=== PATIENT | male | born 1970 | race African-American/Black ===

== ENCOUNTER 2023-06-16 23:39 | Emergency (ER) | payer OTHER, SELFPAY ==
[2023-06-16 23:36] VITALS: BP 114/69; PULSE 69; RESP 14; TEMP 36.8; O2SAT 97; BMI 28.5
[2023-06-16 23:37] VITALS: PULSE 73; RESP 21; O2SAT 98
[2023-06-16 23:38] VITALS: BP 114/66; PULSE 70; RESP 30; O2SAT 96
[2023-06-16 23:40] VITALS: PULSE 73; RESP 22; O2SAT 96
[2023-06-16 23:44] VITALS: O2SAT 98
--- NOTE | 2023-06-16 23:45 | PC.NURSE ---
pt brought in by ems. pt states that him and his just recently moved from [place] to [place]. pt states that he sees a psychiatrist out of [facility] and has his medications filled at the [facility]. patient states that he has a history of PTSD and bipolar disorder and used to take the same meds he was just prescribed but stopped taking them because he stopped going to see his psychiatrist. pt was prescribed and took 2 trazadone, 1 risperidol, 1 prazosin, and 1 divalproex around 10:30/11pm. 30 minutes after taking the medications pt began to feel dizzy/lightheaded, and chest pain. pt called 911 when ems arrived pt bp was 60s/30s. iv started by ems staff and 400mls of fluids by time of arrival to ED. on arrival to ED patient states he is feeling better and chest pain is pretty much gone. bp on arrival is 114/86. at bedside.
--- NOTE | 2023-06-16 23:46 | ED_ITS ---
HPI - Chest Pain General Chief Complaint: Chest Pain Stated Complaint: CHEST PAIN Time Seen by Provider: 06/16/23 23:42 History of Present Illness HPI narrative: fifty 30 male presents for chest pain and the feeling he is going to pass out. At 10 PM he took four new medications, all for the 1st time. These include risperidone, trazodone, prazosin, and divalproex. He took these at 10 PM and about at about 10:45 PM he developed symptoms. This included sweatiness and lightheadedness and dizziness and he felt like he was going to pass out and his chest was hurting. When paramedics arrived his blood pressure was in the 60s systolic. He feels much better now and his chest doesn't hurt. Related Data Home Medications Medication Instructions Recorded Confirmed divalproex 500 mg tablet,extended 500 mg PO DAILY 06/16/23 06/16/23 release 24 hr (Depakote ER) prazosin 1 mg capsule 1 mg PO DAILY 06/16/23 06/16/23 risperidone 1 mg tablet (Risperdal) 1 mg PO DAILY 06/16/23 06/16/23 trazodone 50 mg tablet 50 mg PO DAILY PRN sleep 06/16/23 06/16/23 Allergies Allergy/AdvReac Type Severity Reaction Status Date / Time No Known Drug Allergies Allergy Verified 06/16/23 23:39 Review of Systems ROS Narrative A ten point review of systems is negative except as noted above. Exam Narrative Exam Narrative: Nurses note and vital signs reviewed and patient is not hypoxic. General: The patient appears well and in no apparent distress. Patient is resting comfortably on cart. Skin: Warm, dry, no pallor noted. There is no rash noted. Head: Normocephalic, atraumatic Eye: Normal conjunctiva, no drainage Ears, Nose, Mouth, and Throat: oral mucosa is moist. Nares patent. Cardiovascular: Regular Rate and Rhythm Respiratory: Patient is in no distress, no accessory muscle use, lungs are clear to auscultation, no wheezing, rales or rhonchi Back: non-tender GI: soft and nontender Musculoskeletal: The patient has no evidence of calf tenderness, no pitting edema, symmetrical pulses noted bilaterally Neurological: A&O, normal speech Psychiatric: Cooperative Constitutional Vital Signs, click to edit/add: Last Vital Signs Temp 98.2 F 06/16/23 23:36 Pulse 79 06/17/23 01:47 Resp 29 H 06/17/23 01:47 BP 112/71 06/17/23 01:47 Pulse Ox 97 06/17/23 01:40 O2 Del Method Room Air 06/16/23 23:44 Course Vital Signs Vital signs: Vital Signs Temperature 98.2 F 06/16/23 23:36 Pulse Rate 69 06/16/23 23:36 Respiratory Rate 14 06/16/23 23:36 Blood Pressure 114/69 06/16/23 23:36 Pulse Oximetry 97 06/16/23 23:36 Temperature 98.2 F 06/16/23 23:36 Pulse Rate 79 06/17/23 01:47 Respiratory Rate 29 H 06/17/23 01:47 Blood Pressure 112/71 06/17/23 01:47 Pulse Oximetry 97 06/17/23 01:40 Oxygen Delivery Method Room Air 06/16/23 23:44 MDM - Chest Pain MDM Narrative Medical decision making narrative: two sets of troponin are negative. His blood pressure is normalized. He is ambulatory without difficulty. He was discontinued these new medications [facility]. He has only taken one dose of each of these. Treatment diagnosis and follow-up were discussed with the patient and his . he is asymptomatic upon discharge. Differential Diagnosis Differential diagnosis: Likely pneumothorax, unstable angina pectoris, atypical chest pain, st elevation myocardial infarction, costochondritis and other (medication side effect) Lab Data Attestation: I reviewed the patient's lab results. Labs: Lab Results 06/16/23 06/17/23 Range/Units 23:35 01:06 WBC 12.2 H (4.0-11.0) 10^3/uL RBC 4.38 L (4.70-6.10) 10^6/uL Hgb 13.0 L (14.0-18.0) g/dL Hct 39.5 L (42.0-54.0) % MCV 90.2 (80.0-94.0) fL MCH 29.7 (25.9-34.0) pg MCHC 32.9 (29.9-35.2) g/dL RDW 13.6 (11.0-15.0) % Plt Count 216 (150-450) 10^3/uL MPV 8.8 L (9.5-13.5) fL Neut % (Auto) 63.2 (43.0-75.0) % Lymph % (Auto) 26.5 (20.5-60.0) % Menard % (Auto) 6.8 (1.7-12.0) % Eos % (Auto) 2.9 (0.9-7.0) % Baso % (Auto) 0.2 (0.2-2.0) % Neut # (Auto) 7.7 H (1.4-6.5) 10^3/uL Lymph # (Auto) 3.2 (1.2-3.8) 10^3/uL Menard # (Auto) 0.8 (0.3-0.8) 10^3/uL Eos # (Auto) 0.4 (0.0-0.7) 10^3/uL Baso # (Auto) 0.0 (0.0-0.1) 10^3/uL Abs Immat Gran (auto) 0.05 H (0.00-0.03) 10^3/uL Imm/Tot Granulo (auto) 0.4 (0.0-0.5) % Sodium 143 (136-145) mmol/L Potassium 3.1 L (3.5-5.1) mmol/L Chloride 108 H (98-107) mmol/L Carbon Dioxide 25.8 (21.0-32.0) mmol/L Anion Gap 12.3 BUN 13.0 (7.0-18.0) mg/dL Creatinine 1.07 (0.70-1.30) mg/dL Est GFR ( Amer) >60 (>=60) Est GFR (Non-Af Amer) >60 (>=60) BUN/Creatinine Ratio 12.1 Glucose 121 H (74-106) mg/dL Calcium 8.3 L (8.5-10.1) mg/dL Troponin I High Sens 10.3 10.8 (4.0-76.1) pg/mL Imaging Data Chest x-ray: Radiologist's impression: Procedure: XR chest 1V EXAM: XR chest 1V HISTORY: CP COMPARISON: None available TECHNIQUE: Single frontal view chest x-ray FINDINGS: Overlapping of the right scapula, right ribs, and soft tissues degrade evaluation of the right peripheral lower lung and right costophrenic angle. No lung consolidation, large pleural effusions, pneumothorax, or acute bony abnormality of the visualized portions of the chest. Cardiac size is unremarkable. IMPRESSION: No radiographic evidence for acute abnormality of the visualized portions of the chest. The right peripheral lower lung and costophrenic angle are obscured by overlapping structures as described above. Electronically authenticated by: DANIEL DIXON Date: 06/17/2023 00:07 ECG Data Attestation: I personally reviewed and interpreted this ECG as follows: (EKG on my interpretation shows normal sinus rhythm and a rate of 66.) Heart Score History: Slightly/Non-Suspicious ECG: Normal Age: >45-<65 years Risk Factors: 1 or 2 Risk Factors Troponin: <Normal Limit Total Heart Score Recommendations & Risks:: 2 Discharge Plan Discharge Chief Complaint: Chest Pain Clinical Impression: Chest pain, Hypotension Patient Disposition: Home, Self-Care Time of Disposition Decision: 01:49 Condition: Good Mode of Transportation: Private Vehicle Prescriptions / Home Meds: No Action prazosin 1 mg capsule 1 mg PO DAILY divalproex [Depakote ER] 500 mg tablet extended release 24 hr 500 mg PO DAILY trazodone 50 mg tablet 50 mg PO DAILY PRN (Reason: sleep) Patient Comments: 1-2 tablets as needed at bedtime for sleep Rx Instructions: 1-2 tablets as needed at bedtime for sleep risperidone [Risperdal] 1 mg tablet 1 mg PO DAILY Instructions: Chest Pain (ED), Hypotension (ED) Additional Instructions: discontinue the 4 medications [facility] Stand Alone Forms: Portal Instructions Referrals: Physician,Non-Staff, MD [Primary Care Provider] - 1 week
--- NOTE | 2023-06-16 23:46 | XR_ITS ---
The [address] [address] Patient Name: BRENDEN GARDNER MRN: [id number] date: 1970 Sex: M Assigned Patient Location: ER Current Patient Location: ER Accession/Order Number: [id number] Exam Date: 06/16/2023 23:50 Report Date: 06/17/2023 00:07 At the request of: YVONNE SILVA Procedure: XR chest 1V EXAM: XR chest 1V HISTORY: CP COMPARISON: None available TECHNIQUE: Single frontal view chest x-ray FINDINGS: Overlapping of the right scapula, right ribs, and soft tissues degrade evaluation of the right peripheral lower lung and right costophrenic angle. No lung consolidation, large pleural effusions, pneumothorax, or acute bony abnormality of the visualized portions of the chest. Cardiac size is unremarkable. XR/XR chest 1V IMPRESSION: No radiographic evidence for acute abnormality of the visualized portions of the chest. The right peripheral lower lung and costophrenic angle are obscured by overlapping structures as described above. Electronically authenticated by: DANIEL DIXON Date: 06/17/2023 00:07
--- NOTE | 2023-06-16 23:46 | ECG_ITS ---
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
[2023-06-16 23:50] VITALS: PULSE 75; RESP 31; O2SAT 98
[2023-06-16 23:51] LABS: Basophils Percent Auto 0.2 % (0.2-2.0); Eosinophils Absolute Auto 0.4 10^3/uL (0.0-0.7); Eosinophils Percent Auto 2.9 % (0.9-7.0); Hematocrit 39.5 % (42.0-54.0); Immature Granulocytes Abs Auto 0.05 10^3/uL (0.00-0.03); Immature Granulocytes Pct Auto 0.4 % (0.0-0.5); Lymphocytes Absolute Auto 3.2 10^3/uL (1.2-3.8); Lymphocytes Percent Auto 26.5 % (20.5-60.0); Mean Corpuscular HGB Conc 32.9 g/dL (29.9-35.2); Mean Corpuscular Hemoglobin 29.7 pg (25.9-34.0); Mean Corpuscular Volume 90.2 fL (80.0-94.0); Mean Platelet Volume 8.8 fL (9.5-13.5); Monocytes Absolute Auto 0.8 10^3/uL (0.3-0.8); Monocytes Percent Auto 6.8 % (1.7-12.0); Neutrophils Absolute Auto 7.7 10^3/uL (1.4-6.5); Neutrophils Percent Auto 63.2 % (43.0-75.0); Platelet Count 216 10^3/uL (150-450); Red Blood Count 4.38 10^6/uL (4.70-6.10); Red Cell Distribution Width 13.6 % (11.0-15.0); White Blood Count 12.2 10^3/uL (4.0-11.0)
[2023-06-17] VITALS (16 sets, daily range): BP systolic 80–113; BP diastolic 38–74; PULSE 76–83; RESP 22–36; O2SAT 95–100
[2023-06-17 00:07] LABS: Anion Gap 12.3; BUN Creatinine Ratio 12.1; Calcium 8.3 mg/dL (8.5-10.1); Carbon Dioxide 25.8 mmol/L (21.0-32.0); Chloride 108 mmol/L (98-107); Estimated GFR (African America >60 (>=60); Estimated GFR (Non-African Ame >60 (>=60); Glucose 121 mg/dL (74-106); Potassium 3.1 mmol/L (3.5-5.1); Sodium 143 mmol/L (136-145); Troponin I High Sensitivity 10.3 pg/mL (4.0-76.1)
[2023-06-17] MEDS: 0.9 % SODIUM CHLORIDE 1,000 ML 1000 ML IV (00:10)
[2023-06-17 01:29] LABS: Troponin I High Sensitivity 10.8 pg/mL (4.0-76.1)
== END 2023-06-17 02:10 | disposition home or self-care (01) ==
PROVIDERS: Emergency Provider Emergency Medicine
DX: R07.9 Chest pain, unspecified (principal); I95.9 Hypotension, unspecified; Z79.899 Other long term (current) drug therapy
CPT/HCPCS: 36415; 71045; 80048; 84484; 85025; 93005; 96360; 99285

== ENCOUNTER 2023-06-22 15:27 | Emergency (ER) | payer OTHER, SELFPAY ==
[2023-06-22 15:31] VITALS: BP 165/87; PULSE 79; RESP 20; TEMP 36.8; O2SAT 98; BMI 30.8
--- NOTE | 2023-06-22 15:38 | ED.EXTPRO1 ---
HPI - Extremity Problem General Chief complaint: Extremity Problem, Nontraumatic Stated complaint: Upper Pain right hand Time Seen by Provider: 06/22/23 15:32 Source: patient Mode of arrival: walk-in Limitations: no limitations History of Present Illness HPI Narrative: 53 year old male presents to the ED for pain to his right index finger. Onset was 3-4 days ago. States he did pull a splinter from the tip of the finger prior to the onset. He has since developed swelling and discoloration. Denies fever, chills, drainage. Rates his pain 6/10 at this time. Tetanus status is up to date. Related Data Home Medications Medication Instructions Recorded Confirmed divalproex 500 mg tablet,extended 500 mg PO DAILY 06/16/23 06/16/23 release 24 hr (Depakote ER) prazosin 1 mg capsule 1 mg PO DAILY 06/16/23 06/16/23 risperidone 1 mg tablet (Risperdal) 1 mg PO DAILY 06/16/23 06/16/23 trazodone 50 mg tablet 50 mg PO DAILY PRN sleep 06/16/23 06/16/23 Previous Rx's Medication Instructions Recorded cephalexin 500 mg capsule 500 mg PO Q6H 10 days #40 caps 06/22/23 doxycycline monohydrate 100 mg 100 mg PO BID 10 days #20 caps 06/22/23 capsule Allergies Allergy/AdvReac Type Severity Reaction Status Date / Time No Known Drug Allergies Allergy Verified 06/22/23 15:34 Review of Systems ROS Constitutional Denies: fever or chills Cardiovascular Denies: chest pain Respiratory Denies: shortness of breath Integumentary/Breast Reports: skin pain, skin tenderness and changes in skin color; Denies: rash Exam Constitutional Vital Signs, click to edit/add: Last Vital Signs Temp 98.3 F 06/22/23 15:31 Pulse 79 06/22/23 15:31 Resp 20 06/22/23 15:31 BP 165/87 H 06/22/23 15:31 Pulse Ox 98 06/22/23 15:31 Common normals: no apparent distress and oriented x3 General appearance: cooperative; not ill appearing Eye Common normals: no scleral icterus Neck & C-Spine Common normals: supple Chest Common normals: inspection of chest normal Chest: symmetrical chest wall rise Respiratory Common normals: normal respiratory effort Effort & inspection: able to speak in complete sentences and symmetric chest movement Cardio Common normals: regular rate Extremity Other: White discoloration, tenderness to distal aspect of right index finger. Area is soft; no felon noted. No drainage at this time. There is concern for infection. Full ROM to all aspects of the digit. Distal sensation intact. Cap refill <3 sec. Neuro Common normals: oriented x3 Sensorium/orientation: awake and alert Course Vital Signs Vital signs: Vital Signs Temperature 98.3 F 06/22/23 15:31 Pulse Rate 79 06/22/23 15:31 Respiratory Rate 20 06/22/23 15:31 Blood Pressure 165/87 H 06/22/23 15:31 Pulse Oximetry 98 06/22/23 15:31 Temperature 98.3 F 06/22/23 15:31 Pulse Rate 79 06/22/23 15:31 Respiratory Rate 20 06/22/23 15:31 Blood Pressure 165/87 H 06/22/23 15:31 Pulse Oximetry 98 06/22/23 15:31 MDM - Extremity (Nontraumatic) MDM Narrative Medical decision making narrative: The patient was medicated for his discomfort here. Prescriptions were provided for doxycycline and Keflex. Warm soaks were discussed. Follow up with an orthopedist for a recheck, further evaluation and treatment. Return precautions were discussed. Tylenol and/or Motrin as directed for pain. Differential Diagnosis Differential diagnosis: Likely cellulitis and other (Felon) Medical Records Attestation: I reviewed the patient's medical records. Discharge Plan Discharge Chief Complaint: Extremity Problem, Nontraumatic Clinical Impression: Cellulitis Patient Disposition: Home, Self-Care Time of Disposition Decision: 16:20 Condition: Good Mode of Transportation: Private Vehicle Prescriptions / Home Meds: New cephalexin 500 mg capsule 500 mg PO Q6H 10 Days Qty: 40 0RF doxycycline monohydrate 100 mg capsule 100 mg PO BID 10 Days Qty: 20 0RF No Action prazosin 1 mg capsule 1 mg PO DAILY divalproex [Depakote ER] 500 mg tablet extended release 24 hr 500 mg PO DAILY trazodone 50 mg tablet 50 mg PO DAILY PRN (Reason: sleep) Patient Comments: 1-2 tablets as needed at bedtime for sleep Rx Instructions: 1-2 tablets as needed at bedtime for sleep risperidone [Risperdal] 1 mg tablet 1 mg PO DAILY Instructions: Cellulitis (ED), Warm Compress or Soak (ED) Stand Alone Forms: Portal Instructions Referrals: Physician,Non-Staff, MD [Primary Care Provider] - 1 week Capo Payan MD [Physician] - 1 week Discharge Date/Time: 06/22/23 16:31
[2023-06-22] MEDS: NAPROXEN 250 MG TABLET 500 MG PO (16:14)
[2023-06-22] MEDS: CEPHALEXIN 500 MG CAPSULE PO (16:14)
== END 2023-06-22 16:31 | disposition home or self-care (01) ==
PROVIDERS: Emergency Provider Emergency Medicine
DX: L03.011 Cellulitis of right finger (principal); Z79.899 Other long term (current) drug therapy
CPT/HCPCS: 99283

== ENCOUNTER 2023-11-25 13:35 | Emergency (ER) | payer OTHER, SELFPAY ==
[2023-11-25 13:38] VITALS: BP 149/91; PULSE 82; RESP 20; TEMP 37; O2SAT 99; BMI 33.0
--- NOTE | 2023-11-25 13:51 | ED.BACK1 ---
HPI - Back Pain/Injury General Chief Complaint: Back Pain/Injury Stated Complaint: BACK PAIN Time Seen by Provider: 11/25/23 13:40 Source: patient Mode of arrival: ambulance History of Present Illness HPI Narrative: Patient brought in by EMS for treatment of low back pain. Patient got home from shopping and as he leaned forward to sit in a chair, he felt sudden pain to the right lower back. he said he had been carrying heavy items prior to this. No bowel or bladder dysfunction. No LE weakness, sensory changes or paralysis. He did not take anything for the pain. Related Data Home Medications Medication Instructions Recorded Confirmed divalproex 500 mg tablet,extended 500 mg PO DAILY 06/16/23 06/16/23 release 24 hr (Depakote ER) prazosin 1 mg capsule 1 mg PO DAILY 06/16/23 06/16/23 risperidone 1 mg tablet (Risperdal) 1 mg PO DAILY 06/16/23 06/16/23 trazodone 50 mg tablet 50 mg PO DAILY PRN sleep 06/16/23 06/16/23 Previous Rx's Medication Instructions Recorded cephalexin 500 mg capsule 500 mg PO Q6H 10 days #40 caps 06/22/23 doxycycline monohydrate 100 mg 100 mg PO BID 10 days #20 caps 06/22/23 capsule methocarbamol 750 mg tablet 750 mg PO Q6H PRN pain #30 tabs 11/25/23 nabumetone 750 mg tablet 750 mg PO BID PRN pain #14 tabs 11/25/23 Allergies Allergy/AdvReac Type Severity Reaction Status Date / Time No Known Drug Allergies Allergy Verified 06/22/23 15:34 Exam Narrative Exam Narrative: afebrile General: Alert, no acute distress, patient resting comfortably Skin: warm, intact, no pallor noted Head: Normocephalic, atraumatic Eye: Normal conjunctiva Respiratory: No acute distress Abdomen: Normal bowel sounds, soft, nontender, no masses detected. No rebound, guarding, or rigidity noted. Back: inspection of the back shows no obvious deformity, no swelling, no ecchymosis, contusion, abrasion, swelling, erythema, fluctuance or induration. Tenderness noted to right paralumbar soft tissue_. Straight leg raise on left is negative. Straight leg raise on right is positive. No CVA tenderness noted bilaterally. Musculoskeletal: No deformity noted to bilateral lower extremities. no cyanosis or mottling noted. normal pulses at DP and PT 2+ bilaterally and symmetrically. Normal 5/5 strength at ankles with dorsiflexion and plantar flexion. Patient is able to ambulate. Normal sensation noted to both lower extremities. Neurological: AAOx4, normal sensory and motor observed. L5-S1 reflexes intact symmetrically. DTR 2+ at patellar bilaterally. Psychiatric: Cooperative and interactive. Constitutional Vital Signs, click to edit/add: Last Vital Signs Temp 98.6 F 11/25/23 13:38 Pulse 72 11/25/23 14:18 Resp 18 11/25/23 14:18 BP 141/81 11/25/23 14:18 Pulse Ox 97 11/25/23 14:18 O2 Del Method Room Air 11/25/23 14:18 Course Vital Signs Vital signs: Vital Signs Temperature 98.6 F 11/25/23 13:38 Pulse Rate 82 11/25/23 13:38 Respiratory Rate 20 11/25/23 13:38 Blood Pressure 149/91 H 11/25/23 13:38 Pulse Oximetry 99 11/25/23 13:38 Oxygen Delivery Method Room Air 11/25/23 13:38 Temperature 98.6 F 11/25/23 13:38 Pulse Rate 72 11/25/23 14:18 Respiratory Rate 18 11/25/23 14:18 Blood Pressure 141/81 11/25/23 14:18 Pulse Oximetry 97 11/25/23 14:18 Oxygen Delivery Method Room Air 11/25/23 14:18 MDM - Back Pain/Injury MDM Narrative Medical decision making narrative: no fall/trauma as etiology of low back pain. Ne neuro deficits to suggest acute cauda equina syndrome or other neurosurgical emergency. Exam consistent with right paralumbar strain. Patient ordered to receive IM Solumedrol, IM Toradol and IM Norflex. Discharged home with prescriptions for relafen and robaxin. Given information about back stretches. He can see his PCP for follow up. Discharge Plan Discharge Stand Alone Forms: Portal Instructions Chief Complaint: Back Pain/Injury Clinical Impression: Strain of lumbar region Patient Disposition: Home, Self-Care Time of Disposition Decision: 13:55 Prescriptions / Home Meds: New nabumetone 750 mg tablet 750 mg PO BID PRN (Reason: pain) Qty: 14 0RF methocarbamol 750 mg tablet 750 mg PO Q6H PRN (Reason: pain) Qty: 30 0RF No Action prazosin 1 mg capsule 1 mg PO DAILY divalproex [Depakote ER] 500 mg tablet extended release 24 hr 500 mg PO DAILY trazodone 50 mg tablet 50 mg PO DAILY PRN (Reason: sleep) Patient Comments: 1-2 tablets as needed at bedtime for sleep Rx Instructions: 1-2 tablets as needed at bedtime for sleep risperidone [Risperdal] 1 mg tablet 1 mg PO DAILY cephalexin 500 mg capsule 500 mg PO Q6H 10 Days Qty: 40 0RF doxycycline monohydrate 100 mg capsule 100 mg PO BID 10 Days Qty: 20 0RF Instructions: Low Back Strain (ED), Lower Back Exercises (ED) Referrals: Physician,Non-Staff, MD [Primary Care Provider] - 1 week Discharge Date/Time: 11/25/23 14:19
[2023-11-25] MEDS: METHYLPREDNISOLONE SOD SUCC PF 125 MG/2 ML VIAL IM (14:06)
[2023-11-25] MEDS: ORPHENADRINE 60 MG/ 2 ML VIAL IM (14:06)
[2023-11-25] MEDS: KETOROLAC TROMETHAMINE 60 MG/2 ML VIAL IM (14:06)
[2023-11-25 14:18] VITALS: BP 141/81; PULSE 72; RESP 18; O2SAT 97
== END 2023-11-25 14:19 | disposition home or self-care (01) ==
PROVIDERS: Emergency Provider Emergency Medicine
DX: S39.012A Strain of muscle, fascia and tendon of lower back, initial encounter (principal); X50.9XXA Other and unspecified overexertion or strenuous movements or postures, initial encounter; Z79.899 Other long term (current) drug therapy
CPT/HCPCS: 96372; 99284; J2930

== ENCOUNTER 2024-06-23 20:40 | Emergency (ER) | payer OTHER, SELFPAY ==
[2024-06-23] VITALS (14 sets, daily range): BP systolic 161–187; BP diastolic 96–107; PULSE 64–71; TEMP 37; O2SAT 96–99; BMI 33.1
--- OUTSIDE RECORDS SUMMARY | 2024-06-23 20:44 | XMS_ITS | CCD ---
Author Organization [facility] Care Team Providers Care Ekg Manager Name Role Phone NICOLE TAVERAS Attending Unavailable WILLI BERMUDEZ Referring Unavailable NITIN, NICOLE Attending Unavailable NITIN, NICOLE Attending Unavailable NITIN, NICOLE Admitting Unavailable NITIN, NICOLE Attending Unavailable NITIN, NICOLE Admitting Unavailable NITIN, NICOLE Attending Unavailable WILLI BERMUDEZ Referring Unavailable Bala BOAT WORKER-Ashley OCAMPO Primary Care [facility] er ASHLEY MCKENNA Attending Unavailable ASHLEY MCKENNA Referring Unavailable ASHLEY MCKENNA Primary Care Unavailable ASHLEY MCKENNA Attending Unavailable SEN FREY Referring Unavailable ASHLEY MCKENNA Primary Care Unavailable ASHLEY MCKENNA Referring Unavailable ASHLEY MCKENNA Primary Care Unavailable ASHLEY MCKENNA Referring Unavailable ASHLEY MCKENNA Primary Care Unavailable LUCA MILLAN Attending Unavailable ASHLEY MCKENNA Referring Unavailable ASHLEY MCKENNA Primary Care Unavailable Medications Current Medications Medication Drug Class(es) Dates Sig (Normalized) Sig (Original) [id number] 200 actuat albuterol 0.09 mg/actuat metered dose inhaler (7 sources) beta2-Adrenergic Agonist take 2 puff(s) by inhalation every six hours as needed for wheezing albuterol (PROVENTIL HFA;VENTOLIN HFA) 90 mcg/actuation inhaler Inhale 2 puffs every 6 (six) hours as needed for wheezing. 0 Active buPROPion hydrochloride 100 mg oral tablet (7 sources) Aminoketone take 1.5 tablets by mouth in the morning, then take 1.5 tablets by mouth at bedtime buPROPion (WELLBUTRIN) 100 mg tablet Take 1.5 tablets (150 mg total) by mouth in the morning and 1.5 tablets (150 mg total) before bedtime. 0 Active ibuprofen 600 mg oral tablet (7 sources) Nonsteroidal Anti-inflammatory Drug take 1 tablet by mouth every six hours as needed for pain ibuprofen (MOTRIN) 600 mg tablet Take 1 tablet (600 mg total) by mouth every 6 (six) hours as needed for pain. 0 Active methocarbamol 750 mg oral tablet (8 sources) Muscle Relaxant Start: 09-27-2023 End: 12-05-2023 take 1 tablet by mouth three times daily as needed for muscle spasms methocarbamoL (ROBAXIN-750) 750 mg tablet Indications: Lumbar back pain with radiculopathy affecting left lower extremity , Muscle spasm of back Take 1 tablet (750 mg total) by mouth 3 (three) times a day as needed for muscle spasms. 60 tablet 1 12/05/2023 Active predniSONE 20 mg oral tablet (4 sources) Start: 09-27-2023 End: 12-05-2023 predniSONE (DELTASONE) 20 mg tablet Indications: Lumbar back pain with radiculopathy affecting left lower extremity , Muscle spasm of back Take 1 tablet (20 mg total) by mouth See Admin Instructions. 1 tab 2x daily x3 days, 1 tab daily x3 days, 1/2 tablet daily x4 days 11 tablet 0 09/27/2023 12/05/2023 Discontinued (Therapy completed) traZODone hydrochloride 50 mg oral tablet (7 sources) Serotonin Reuptake Inhibitor traZODone (DESYREL) 50 mg tablet Take 1 tablet (50 mg total) by mouth nightly. 1 TO 2 TABLETS 0 Active divalproex sodium 500 mg delayed release oral tablet (7 sources) Mood Stabilizer, Anti-epileptic Agent take 1 tablet by mouth three times daily divalproex (DEPAKOTE) 500 mg EC tablet Take 1 tablet (500 mg total) by mouth 3 (three) times a day. 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, initial encounter] Onset: 3 Chronic Other lower respiratory disease (2 sources) Nodule of lung; Translations: [Solitary pulmonary nodule] 12-05-2023 Episodic Other lower respiratory disease (1 source) Solitary pulmonary nodule; Translations: [Solitary pulmonary nodule] Onset: 4 Episodic Other screening for suspected conditions (not mental disorders or infectious disease) (3 sources) Patient encounter status; Translations: [Encounter for screening for malignant neoplasm of prostate] Onset: 4 12-05-2023 Episodic Spondylosis; intervertebral disc disorders; other back problems (4 sources) Lumbosacral spondylosis without myelopathy; Translations: [Spondylosis without myelopathy or radiculopathy, lumbosacral region] Onset: 4 12-14-2023 Chronic Spondylosis; intervertebral disc disorders; other back problems (10 sources) Lumbar radiculopathy; Translations: [Radiculopathy, lumbar region] Onset: 4 09-27-2023 Episodic Unclassified (2 sources) Post-op; Translations: [Post-op] Onset: 3 Unclassified (1 source) Annual Exam Onset: 4 Unclassified (1 source) New Patient Onset: 4 Past or Other Problems Problem Classification Problem Date Documented Da te Episodic/Chronic Mood disorders (7 sources) Mood disorders Onset: 09-27-2023 Resolved: 12-05-2023 09-27-2023 Unclassified (7 sources) Onset: 09-27-2023 Resolved: 12-05-2023 09-27-2023 Results Test Name Value Interpretation Reference Range Facility CBC AND AUTO DIFFon 12-05-19 24 ABSOLUTE BASOPHIL 0.0 X10E9/L Normal 0.0-0.2 [facility] Comment on above: Performed By: #### C BCA, CMP, 31879-9, 2857-1, 3016-3 #### [facility] ([id number]) [address], [address] [place] [address] ABSOLUTE NEUTROPHIL 6.2 X10E9/L Normal 1.5-6.6 [facility] Comment on above: Performed By: #### C BCA, CMP, 77703-3, 2857-1, 3016-3 #### [facility] ([id number]) [address], [address] [place] [address] Basophils/100 WBC (Bld) 0.3 % Normal [facility] Comment on above: Performed By: #### C BCA, CMP, 55116-1, 2857-1, 3016-3 #### [facility] ([id number]) [address], [address] [place] [address] Eosinophils (Bld) [#/Vol] 0.2 10*3/uL Normal 0.0-0.4 [facility] Comment on above: Performed By: #### C BCA, CMP, 33364-7, 2857-1, 6-3 #### [facility] ([id number]) [address], [address] [place] [address] Eosinophils/100 WBC (Bld) 2.1 % Normal [facility] Comment on above: Performed By: #### C BCA, CMP, 78051-1, 2857-1, 6-3 #### [facility] ([id number]) [address], [address] [place] [address] Erythrocyte distribution width (RBC) [Ratio] 14.6 % Normal 11.5-15.0 [facility] Comment on above: Performed By: #### C BCA, CMP, 88003-3, 2857-1, 3016-3 #### [facility] ([id number]) [address], [address] [place] [address] Hematocrit (Bld) [Volume fraction] 44.2 % Normal 39-49 [facility] Comment on above: Performed By: #### C BCA, CMP, 66019-8, 2857-1, 3016-3 #### [facility] ([id number]) [address], [address] [place] [address] Hemoglobin (Bld) [Mass/Vol] 15.0 g/dL Normal 13.0-17.0 [facility] Comment on above: Performed By: #### C BCA, CMP, 12114-5, 2857-1, 3016-3 #### [facility] ([id number]) [address], [address] [place] [address] Lymphocytes (Bld) [#/Vol] 2.4 10*3/uL Normal 1.0-3.5 [facility] Comment on above: Performed By: #### C BCA, CMP, 36012-2, 2857-1, 3016-3 #### [facility] ([id number]) [address], [address] [place] [address] Lymphocytes/100 WBC (Bld) 24.7 % Normal [facility] Comment on above: Performed By: #### C BCA, CMP, 97798-2, 2857-1, 3016-3 #### [facility] ([id number]) [address], [address] [place] [address] MCH (RBC) [Entitic mass] 29.5 pg Normal 27-34 [facility] Comment on above: Performed By: #### C BCA, CMP, 27016-7, 2857-1, 3016-3 #### [facility] ([id number]) [address], [address] [place] [address] MCHC (RBC) [Mass/Vol] 33.9 g/dL Normal 32-36 [facility] Comment on above: Performed By: #### C BCA, CMP, 64327-1, 2857-1, 3016-3 #### [facility] ([id number]) [address], [address] [place] [address] MCV (RBC) [Entitic vol] 87 fL Normal 80-100 [facility] Comment on above: Performed By: #### C BCA, CMP, 00430-1, 2857-1, 3016-3 #### [facility] ([id number]) [address], [facility] [address] [place] [address] Monocytes (Bld) [#/Vol] 0.8 10*3/uL Normal 0-0.9 [facility] Comment on above: Performed By: #### C BCA, CMP, 12680-0, 2857-1, 3016-3 #### [facility] ([id number]) [address], [facility] [address] [place] [address] Monocytes/100 WBC (Bld) 8.5 % Normal [facility] Comment on above: Performed By: #### C BCA, CMP, 05216-8, 2857-1, 3016-3 #### [facility] ([id number]) [address], [facility] [address] [place] [address] Neutrophils/100 WBC (Bld) 64.4 % Normal [facility] Comment on above: Performed By: #### C BCA, CMP, 22329-3, 2857-1, 301-3 #### [facility] ([id number]) [address], [address] [place] [address] Platelet mean volume (Bld) [Entitic vol] 7.7 fL Normal 7-12 [facility] Comment on above: Performed By: #### C BCA, CMP, 03700-2, 2857-1, 3016-3 #### [facility] ([id number]) [address], [facility] [address] [place] [address] Platelets (Bld) [#/Vol] 268 10*3/uL Normal 150-450 [facility] Comment on above: Performed By: #### C BCA, CMP, 37722-4, 2857-1, 3016-3 #### [facility] ([id number]) [address], [address] [place] [address] RBC COUNT 5.09 X10E12/L Normal 4.10-5.70 [facility] Comment on above: Performed By: #### C BCA, CMP, 78106-4, 2857-1, 3016-3 #### [facility] ([id number]) [address], [address] [place] [address] WBC (Bld) [#/Vol] 9.7 10*3/uL Normal 4.0-11.0 [facility] Comment on above: Performed By: #### C BCA, CMP, 73152-2, 2857-1, 6-3 #### [facility] ([id number]) [address], [address] [place] [address] COMPREHENSIVE METABOLIC PANE Eliezer 12-05-2023 Albumin [Mass/Vol] 4.2 g/dL Normal 3.2-5.3 [facility] Comment on above: Performed By: #### C BCA, CMP, 90000-6, 2857-1, 3016-3 #### [facility] ([id number]) [address], [address] [place] [address] ALP [Catalytic activity/Vol] 86 U/L Normal 39-130 [facility] Comment on above: Performed By: #### C BCA, CMP, 12458-9, 2857-1, 6-3 #### [facility] ([id number]) [address], [address] [place] [address] ALT [Catalytic activity/Vol] 12 U/L Normal 0-40 [facility] Comment on above: Performed By: #### C BCA, CMP, 20956-8, 2857-1, 3016-3 #### [facility] ([id number]) [address], [address] [place] [address] Anion gap [Moles/Vol] 9 mmol/L Normal 5-15 [facility] Comment on above: Performed By: #### C BCA, CMP, 21285-9, 2857-1, 3016-3 #### [facility] ([id number]) [address], [address] [place] [address] AST [Catalytic activity/Vol] 13 U/L Normal 0-41 [facility] Comment on above: Performed By: #### C BCA, CMP, 89913-4, 2857-1, 3016-3 #### [facility] ([id number]) [address], [address] [place] [address] Bilirubin [Mass/Vol] 0.3 mg/dL Normal 0.3-1.2 [facility] Comment on above: Performed By: #### C BCA, CMP, 39735-3, 2857-1, 3016-3 #### [facility] ([id number]) [address], [address] [place] [address] Calcium [Mass/Vol] 9.6 mg/dL Normal 8.5-10.5 [facility] Comment on above: Performed By: #### C BCA, CMP, 97670-5, 2857-1, 3016-3 #### [facility] ([id number]) [address], [address] [place] [address] Chloride [Moles/Vol] 106 mmol/L Normal 98-109 [facility] Comment on above: Performed By: #### C BCA, CMP, 69269-7, 2857-1, 3016-3 #### [facility] ([id number]) [address], [address] [place] [address] CO2 [Moles/Vol] 26 mmol/L Normal 22-32 [facility] Comment on above: Performed By: #### C BCA, CMP, 83663-5, 2857-1, 3016-3 #### [facility] ([id number]) [address], [address] [place] [address] Creatinine [Mass/Vol] 0.74 mg/dL Normal 0.60-1.30 [facility] Comment on above: Result Comment: METH OD TRACEABLE TO IDMS STANDARD Performed By: #### C BCA, CMP, 08153-0, 2857-1, 3016-3 #### [facility] ([id number]) [address], [address] [place] [address] eGFR (CKD-EPI) NON-RACE DEPENDENT >90 Normal >59 [facility] Comment on above: Result Comment: Reported eGFR is based on the CKD-EPI 2020 equation that does not use a race coefficient. Performed By: #### C BCA, CMP, 22241-4, 2857-1, 3016-3 #### [facility] ([id number]) [address], [address] [place] [address] Glucose [Mass/Vol] 112 mg/dL High 65-99 [facility] Comment on above: Performed By: #### C BCA, CMP, 44880-0, 2857-1, 3016-3 #### [facility] ([id number]) [address] [address] [place] [address] Potassium [Moles/Vol] 3.9 mmol/L Normal 3.5-5.0 [facility] Comment on above: Performed By: #### C BCA, CMP, 04004-3, 2857-1, 3016-3 #### [facility] ([id number]) [address] [address] [place] [address] Protein [Mass/Vol] 7.0 g/dL Normal 6.0-8.0 [facility] Comment on above: Performed By: #### C BCA, CMP, 82043-5, 2857-1, 3016-3 #### [facility] ([id number]) [address], [address] [place] [address] Sodium [Moles/Vol] 141 mmol/L Normal 134-146 [facility] Comment on above: Performed By: #### C BCA, CMP, 79030-3, 2857-1, 3016-3 #### [facility] ([id number]) [address], [address] [place] [address] Urea nitrogen [Mass/Vol] 15 mg/dL Normal 5-23 [facility] Comment on above: Performed By: #### C BCA, CMP, 67543-6, 2857-1, 3016-3 #### [facility] ([id number]) [address], [address] [place] [address] HGB A1C (GLYCO-HGB)on 2023 Glucose [Mass/Vol] 128 mg/dL Normal [facility] Comment on above: Performed By: #### C BCA, CMP, 02706-4, 2857-1, 3016-3 #### [facility] ([id number]) [address], [address] [place] [address] HbA1c (Bld) [Mass fraction] 6.1 % High 4.4-5.6 [facility] Comment on above: Result Comment: NOTE ADA Guidelines Result HgbA1c Normal : less than 5.7 % Prediabetes : 5.7 % to 6.4 % Diabetes : > 6.4 % Use with caution in patients with abnormal hemoglobin variants as the half-life of red blood cells and in vivo glycation rates are affected. Performed By: #### C BCA, CMP, 57699-3, 2857-1, 3016-3 #### [facility] ([id number]) [address], [address] [place] [address] Lipid 1996 panelon Cholesterol [Mass/Vol] 236 mg/dL High 150-200 [facility] Comment on above: Performed By: #### C BCA, CMP, 51478-9, 2857-1, 3016-3 #### [facility] ([id number]) [address], [facility] [address] [place] [address] Cholesterol in HDL [Mass/Vol] 40 mg/dL Normal >39 [facility] Comment on above: Result Comment: HDL <40 mg/dL - High Risk HDL > or = 40mg/dL- Desirable HDL >60 mg/dL - Negative Risk Performed By: #### C PATRICIA, CMP, 08375-3, 2857-1, 6-3 #### [facility] ([id number]) [address], [address] [address] Cholesterol in LDL [Mass/Vol] 126 mg/dL Normal <130 [facility] Comment on above: Result Comment: LDL <100 mg/dL - Desirable LDL >160 mg/dL - High Risk Performed By: #### Álvaro GOMEZ, CMP, 47127-3, 2857-1, 6-3 #### [facility] ([id number]) [address], [address] [address] Cholesterol in VLDL [Mass/Vol] 70 mg/dL High 0-30 [facility] Comment on above: Performed By: #### Álvaro GOMEZ, CMP, 08714-3, 2857-1, 3016-3 #### [facility] ([id number]) [address], [address] [address] CHOLESTEROL:HDL 5.9 High 1.0-5.0 [facility] Comment on above: Performed By: #### Álvaro BCA, CMP, 23765-7, 2857-1, 6-3 #### [facility] ([id number]) [address] [address] Triglyceride [Mass/Vol] 350 mg/dL High 27-150 [facility] Comment on above: Performed By: #### C VICTOR M GOMEZ, 25216-4, 2857-1, 3016-3 #### [facility] ([id number]) [address] [address] Prostate specific Ag [Mass/V ol]on 12-05-2023 PSA SCREEN 0.35 ng/mL Normal 0.00-4.00 [facility] Comment on above: Result Comment: The method used for this test is [employer] DXI chemiluminescent immunoassay. Values obtained by different assay methods cannot be used interchangeably. Performed By: #### C VICTOR M GOMEZ, 72066-9, 2857-1, 3016-3 #### [facility] ([id number]) [address] [address] TSH Qnon 12-05-2023 TSH 2.12 uIU/mL Normal 0.49-4.67 [facility] Comment on above: Performed By: #### C VICTOR M GOMEZ, 51645-8, 2857-1, 3016-3 #### [facility] ([id number]) [address] [address] XR SPINE LUMBAR 2 OR 3 VWSon 11-16-2023 XR SPINE LUMBAR 2 OR 3 VWS XR SPINE LUMBAR 2 OR 3 VWS EXAM: XR SPINE LUMBAR 2 OR 3 VWS INDICATION: Pain COMPARISON: None TECHNIQUE: 3 views of the lumbar spine were obtained FINDINGS: 5 nonrib-bearing lumbar-type vertebral bodies. Vertebral body heights, densities, and alignment are normal. No evidence of acute fracture. Multilevel degenerative disc disease with associated disc space narrowing, vertebral endplate sclerosis, and osteophytosis most pronounced at L3-L4, L4-L5, and L5-S1. Posterior element degeneration most pronounced at L5-S1. IMPRESSION: No acute abnormalities. Degenerative disc disease most pronounced at L3-L4, L4-L5, and L5-S1. Finalized by Se Garcia on 11/16/2023 4:27 PM Normal [facility] Office Visiton 08-16-2023 Follow-up visit [id number] Sue Gardner tiffany D 1970 M Date Provider Department Center 08/16/2023 373-YAIR TAVERAS ORTHO MPORTHO Family History Family history unknown: Yes Level of Service:91248 [place] POSTOP FOLLOW UP VISIT RELATED TO ORIGINAL PX Reason for Visit and Comments: Post-op [483] Normal [facility] Anesthesiaon 08-01-2023 [id number] Sue Gardner [address] D 1970 M Date Provider Department Center 08/01/2023 [id number] [facility]STIE Family History Family history unknown: Yes Normal [facility] HISTOLOGY - TISSUE EXAMon LAB AP CASE REPORT Normal [facility] Comment on above: Order Comment: Pre-o p diagnosis:Necrosis (CMS/HCC) [I96] Result Comment: Surg ical Pathology Case: [id number] Authorizing Provider: Nicole Taveras MD Collected: 08/01/2023 0749 Ordering Location: [facility] Received: 08/01/2023 [facility] [place] Pathologist: Bailey Meng MD Specimen: Finger, 1. RIGHT INDEX FINGER Performed By: #### L [id number] ####[facility] ([facility])[address] [place] [address] LAB AP CLINICAL INFORMATION Normal [facility] Comment on above: Order Comment: Pre-o p diagnosis:Necrosis (CMS/HCC) [I96] Result Comment: Post -Op Diagnoses I96 - Necrosis (CMS/HCC) [ICD-10-CM] Performed By: #### L [id number] ####[facility] ([facility])[address] [place] [address] LAB AP GROSS DESCRIPTION A. Finger. Normal [facility] Comment on above: Order Comment: Pre-o p diagnosis:Necrosis (CMS/HCC) [I96] Result Comment: Rece ived in formalin labeled Aleksandar Gardner, 1. RIGHT INDEX FINGER is a distal finger amputation which appears disarticulated at the distal interphalangeal joint, 2.4 x 2.2 x 1.7 cm. Proximal 0.5 cm of bone is received without overlying skin and soft tissue however the bone is slightly fragmented. There is a dark yellow keratinized nail at the distal dorsal aspect, 1.5 x 1.6 cm. The volar aspect is remarkable for a pink-beck eroded wound 1.6 x 1.3 cm, extending to the proximal resection margin. Tangential sections of the proximal skin margin are submitted in 1. A longitudinal section of the finger to include wound and underlying bone are submitted in 2 after decalcification. Shalini Barahona, Pathologists' Coil Connector Performed By: #### L [id number] ####[facility] (AKER)[address] [place] [place] [address] LAB AP MICROSCOPIC DESCRIPTION Microscopic examination performed. [facility] Comment on above: Order Comment: Pre-o p diagnosis:Necrosis (CMS/HCC) [I96] Performed By: #### L [id number] ####[facility] ([facility])[address] [facility] [place] [address] LAB AP REPORT FINAL DIAGNOSIS NARRATIVE [facility] Comment on above: Order Comment: Pre-o p diagnosis:Necrosis (CMS/HCC) [I96] Result Comment: Shiv Connors igit, right index finger, partial amputation: - Gangrenous necrosis of skin and soft tissue with granulation tissue formation. - No evidence of osteomyelitis. Performed By: #### L [id number] ####[facility] ([facility])[address] [facility] [place] [address] HPon 08-01-2023 HP H&P reviewed. The patient was examined and there are no changes to the H&P. [facility] OPNOTEon 08-01-2023 OPNOTE INDEX FINGER AMPUTATION (R) Operative Note Date: 08/01/2023 Location: [facility] OR Name: Aleksandar Wong [place], : 1970, Diagnosis Pre-op Diagnosis * Necrosis (CMS/HCC) [I96] Post-op Diagnosis * Necrosis (CMS/HCC) [I96] Procedures * INDEX FINGER AMPUTATION Surgeons * Nicole Taveras - Primary Procedure Summary Anesthesia: Local ASA: II Estimated Blood Loss: 10 mL Specimens ID Source Type Tests Collected By Collected At Frozen? Priority Lab ID A Finger Tissue HISTOLOGY - TISSUE EXAM Nicole Taveras MD 08/01/23 0749 No Today Description: 1. RIGHT INDEX FINGER Staff: Back Feeder [employer] Layup Line: Gerardo Nguyễn RN Scrub Person: Jazz Jimenez CST Indications: Aleksandar Gardner is an 53 y.o. male who is having surgery for Necrosis (CMS/HCC) [I96]. Procedure Details: The patient was seen in the preoperative area. The risks, benefits, complications, treatment options, non-operative alternatives, expected recovery and outcomes were discussed with the patient. The possibilities of reaction to medication, pulmonary aspiration, injury to surrounding structures, bleeding, recurrent infection, the need for additional procedures, failure to diagnose a condition, and creating a complication requiring transfusion or operation were discussed with the patient. The patient concurred with the proposed plan, giving informed consent. The site of surgery was properly noted/marked if necessary per policy. The patient has been actively warmed in preoperative area. Preoperative antibiotics have been ordered and given within 1 hours of incision. Venous thrombosis prophylaxis are not indicated. Findings: Volar oblique loss of the distal phalanx with slight residual fibrinous exudate. Once the skin has been incised there is no significant bleeding. Definitely no arterial bleeding. Under monitored anesthesia care, patient's right upper extremities prepped and draped for the proposed procedure. A digital block was established to the right index finger. Turnicot was not used initially. An ellipse was made with planned excision of the defect of the dorsal incision just proximal to the nail fold and volar just proximal to the defect. The incision was deepened through all the soft tissues in the amputated fingertip was delivered off the field for pathological exam. At this time the remaining nail bed was completely excised as well as most distal portion of the volar plate and flexor tendon. Digital nerves were identified and excised proximally away from the end of the amputation site. The condyles of the middle phalanx were then rongeured tapering it to stimulate the shape of the distal phalanx. This allowed a tension-free approximation of the flaps. Wound then thoroughly irrigated with normal saline solution and repaired with a 4 Novafil established in a mattress fashion. Sterile dressing was applied. Complications: None; patient tolerated the procedure well. Disposition: PACU - hemodynamically stable. Condition: stable Nicole Taveras Normal [facility] POCT GLUCOSE METER UNSOLICIT ED RESULTSon 08-01-2023 Glucose [Mass/Vol] 109 mg/dL High 70-105 [facility] Comment on above: Order Comment: Waive d Testing in the ED is performed under the ED CLIA certificate #[id number]. Result Comment: acle ment Performed By: #### L [id number] #### [facility] ([facility]AK[facility]) [address] [place] [address] HPon 07-27-2023 HP -- Attestation signed by Nicole Taveras MD at 07/30/2023 2:55 PM As the teaching physician, I have personally performed or re-performed the history of present illness, physical exam and medical decision making activities of the encounter and verified the medical student's documentation. I made pertinent changes as necessary to ensure accurate documentation. Orthopedic Surgery Subjective Chief complaint: Chief Complaint Patient presents with Right Index Finger - Post-op 07/27/23 Aleksandar Gardner is a 53 y.o. year old left-hand dominant male presenting for follow-up 10 days s/p I&D of right index finger w/ integra wound application. The patient reports that his pain is much better and it now is only a 5/10. He is currently taking ibuprofen PRN for his pain. He reports that last he sustained a fall in which he landed on his right hand. He presented to [facility]'s ED in [place] three days after this incident, in which the right index was found to be infected. The patient reports that he was told that the wound covering had crusted over and was advised to keep changing his wound covering every day which he has now been doing. Previous Treatments: None ROS: Denies fevers, chills, and other constitutional symptoms. Denies shortness of breath. Patient History Past Surgical History: Procedure Laterality Date ABCESS DRAINAGE Right 07/17/2023 integra wound matrix index finger, skin graft application to lower extremity LIPOMA RESECTION SEVERAL LUNG SURGERY Past Medical History: Diagnosis Date COPD (chronic obstructive pulmonary disease) (CMS/HCC) Pleurisy HISTORY OF Stomach ulcer Objective General: Body mass index is 31.95 kg/m???. There were no vitals filed for this visit. No acute distress, comfortable Respiratory: Unlabored breathing with normal rate, no cough Cardiovascular: Warm well perfused extremities Psych: Appropriate mood behavior MSK: Inability to flex PIP and DIP of right index finger. Skin: Yellow-green pus drainage at site of incision Imaging: No imaging reviewed Assessment/Plan Aleksandar Gardner is a 53 y.o. year old male with Necrosis (CMS/HCC) of right index finger presenting as a follow-up 10 days s/p I&D of right index finger with integra wound application. Patient's site of incision is infected with signs of purulent drainage, and has inability to flex the PIP and DIP of the right index finger. Plan: -Stiches of right index were taken out today, and irrigated with saline. The patient's wound was wrapped with a wet and dry wrapping. -We discussed with the patient conservative management and amputation of right index finger to prevent further spread of infection and amputation of other fingers. The patient elected to undergo amputation of the right index and will be scheduled for it. Signed: Wade Cornell MS3 [facility] Labon 07-27-[id number] 1970 M Date Provider Department Center 07/27/2023 [id number] MP LAB RESOURCE MP DRAW Medical Pavi Family History Family history unknown: Yes Normal [facility] MRSA/MSSA DNA NASALon 2022 MRSA DNA Negative Normal Negative [facility] Comment on above: Order Comment: Testi ng methodology is an automated qualitative in vitro diagnostic test for the directdetection and differentiation of Staphylococcus aureus (SA) DNA and methicillin-resistant Staphylococcus aureus (MRSA) DNA from nasal swabs in patients at risk for nasal colonization. The test utilizes real-time polymerase chain reaction (PCR) for the amplification of MRSA/SA DNA and fluorogenic target-specific hybridization probes for the detection of the amplified DNA. A negative result does not preclude nasal colonization. Performed By: #### L [id number] ####[facility] ([facility])[address] [place] [address] MSSA DNA Negative Normal Negative [facility] Comment on above: Order Comment: Testi ng methodology is an automated qualitative in vitro diagnostic test for the directdetection and differentiation of Staphylococcus aureus (SA) DNA and methicillin-resistant Staphylococcus aureus (MRSA) DNA from nasal swabs in patients at risk for nasal colonization. The test utilizes real-time polymerase chain reaction (PCR) for the amplification of MRSA/SA DNA and fluorogenic target-specific hybridization probes for the detection of the amplified DNA. A negative result does not preclude nasal colonization. Performed By: #### L [id number] ####[facility] ([facility])[address] [place] [address] Office Visiton 07-27-2023 Follow-up visit [id number] [address] 1970 M Date Provider Department Center 07/27/2023 [facility] MPORTHO Family History Family history unknown: Yes Level of Service:97489 [place] POSTOP FOLLOW UP VISIT RELATED TO ORIGINAL PX Reason for Visit and Comments: Post-op [483] Normal [facility] HPon 07-17-2023 HP H&P reviewed. The patient was examined and there are no changes to the H&P. [facility] OPNOTEon 07-17-2023 OPNOTE I&D Index Finger wit h Integra wound matrix application (R) Operative Note Date: 07/17/2023 Location: [facility] OR Name: Aleksandar Gardner, : 1970, Diagnosis Pre-op Diagnosis * Necrosis (CMS/HCC) [I96] Post-op Diagnosis * Necrosis (CMS/HCC) [I96] Procedures * I&D Index Finger with Integra wound matrix application Surgeons * Nicole Nitin - Primary Procedure Summary Anesthesia: Regional ASA: III Estimated Blood Loss: None Implants Type Name Action Serial No. Allograft Tissue DRESSING,BILAYER,2X2 , 5CM - [id number] Implanted Staff: Back Feeder Plywood Layup Line: Sofy Osullivan RN Relief Back Feeder Plywood Layup Line: Madison Carcamo Relief Scrub: Lilly Corea Scrub Person: Jazz Jimenez CST Indications: Aleksandar Gardner is an 53 y.o. male who is having surgery for Necrosis (CMS/HCC) [I96]. Procedure Details: The patient was seen in the preoperative area. The risks, benefits, complications, treatment options, non-operative alternatives, expected recovery and outcomes were discussed with the patient. The possibilities of reaction to medication, pulmonary aspiration, injury to surrounding structures, bleeding, recurrent infection, the need for additional procedures, failure to diagnose a condition, and creating a complication requiring transfusion or operation were discussed with the patient. The patient concurred with the proposed plan, giving informed consent. The site of surgery was properly noted/marked if necessary per policy. The patient has been actively warmed in preoperative area. Preoperative antibiotics have been ordered and given within 1 hours of incision. Venous thrombosis prophylaxis are not indicated. Findings: Necrotic superficial tissue to the volar aspect of the right index finger measuring 2 x 2 cm. No signs of any infection. The preoperative holding area under sterile technique a digital block to the right index finger was established using 0.5% Marcaine/1% Xylocaine. Patient was then transferred the operating room whereby the right upper extremity is prepped and draped for the proposed procedure. Finger turnicot was not used. Sharp dissection was used to excise the necrotic tissue down to healthy volar bed. There was definitely a volar oblique loss of the entire pulp of the index finger. Dorsal aspect as well as the nail matrix was preserved. The wound was then thoroughly irrigated with normal saline solution and corrected. The area measured 2 x 2 cm and a ACell bilayer was selected. The remaining portion that was not used of the ACell was placed deep to the bilayer. Bilateral layer was then secured with a 3-0 Vicryl. Sterile dressings were applied over an Adaptic. Complications: None; patient tolerated the procedure well. Disposition: PACU - hemodynamically stable. Condition: stable Nicole Taveras Normal [facility] POCT GLUCOSE METER UNSOLICIT ED RESULTSon 07-17-2023 Glucose [Mass/Vol] 91 mg/dL Normal 70-105 [facility] Comment on above: Order Comment: Brina connors Testing in the ED is performed under the ED CLIA certificate #[id number]. Result Comment: estephania dy2 Performed By: #### L [id number] ####[facility] ([facility])[address] [place] [address] HPon 07-12-2023 HP -- Attestation signed by Nicole Taveras MD at 07/17/2023 12:36 PM I personally saw and examined the patient on the same date of service as resident/fellow . I discussed the findings and therapeutic plan with the resident/fellow . I agree with the documentation, except for any edits/updates below. Teaching Physician's Revisions: Orthopedic Surgery Subjective Pain of the Right Index Finger 07/12/23 Aleksandar Gardner is a 53 y.o. year old male presenting for evaluation of a wound to the volar aspect of the distal phalanx on the right second digit. Patient states that about 2 months ago he noticed swelling and discoloration to the entire second digit. He went to an ED and was given a course of Keflex which helped to decrease the swelling. However his pain is persisted and he most recently went to an ED on 07/07 due to noted discoloration of the volar aspect of the second distal phalanx. He stated that the area turned black and became hard. There was an area of fluctuance beneath the discoloration. He is continue to take antibiotics for this with no relief. Today he states that his pain is around a 7 out of 10. He states his only area of numbness is the area of discoloration. He is a chronic smoker Patient History Past Surgical History: Procedure Laterality Date LUNG SURGERY History reviewed. No pertinent past medical history. No Known Allergies Current Outpatient Medications Medication Instructions cephalexin (KEFLEX) 500 mg, oral, 2 times daily Objective General: Body mass index is 29.95 kg/m???. No acute distress, comfortable Respiratory: Unlabored breathing on RA, no cough Cardiovascular: Warm well perfused extremities Psych: Appropriate mood behavior Right Hand: Inspection- 3 cm diameter area of necrotic tissue on volar 2nd distal phalanx with rim of erythema Tender to palpation over right second distal phalanx, with area of fluctuance beneath area of necrosis Nontender to palpation over rest of 2nd digit Thumb: normal A1 concepcion and AROM, Long finger: normal A1 concepcion and AROM, Ring finger: normal A1 concepcion and AROM, Small finger: normal A1 concepcion and AROM, and Index finger AROM and PROM limited due to swelling Strength: dope firer 5/5, thumb 5/5, interossei 5/5 Sensation: intact over median, ulnar, and radial nerve distributions Cardiovascular: Well-perfused digits Imaging personally reviewed and our interpretation: No new imaging collected at this visit Assessment/Plan Aleksandar Gardner is a 53 y.o. year old male with necrosis and possible cellulitis to the right second distal phalanx Plan: - Plan for excisional debridement of the right 2nd distal phalanx and Acell application next week - Patient was educated on conservative and operative treatment options and has elected to proceed with the above procedure - Patient was informed of preoperative instructions - Patient will continue to manage pain with ibuprofen, ice and elevation Toño Holder MD Orthopaedic Surgery PGY-1 [facility] 07/12/23 11:27 AM By using the attestations below, the signing clinician agrees that I have read and verify that the documentation has been personally reviewed by me and ensure that the documentation accurately reflects the encounter. GC: I personally saw this patient on the day of the encounter, performed the muniz portion(s) of the service and participated in the management and confirm the resident's documentation. Please note there may be an additional personal documentation from me. [facility] Office Visiton 07-12-2023 Follow-up visit [id number] [address] 1970 M Date Provider Department Center 07/12/2023 [place] T[facility]ER[facility] MPORTHO Family History Family history unknown: Yes Level of Service:90031 [place] OFFICE/OUTPATIENT NEW LOW MDM 30-44 MINUTES Reason for Visit and Comments: Pain [136] [facility] 36on 07-11-2023 36 Spoke with patient a nd he has an appointment with fausto tomorrow [facility] 36 07-10-2023 36 Patient called in a bit frustrated that he had a surgery schedule with [facility] in [place] on and was told that his Sx was cancelled with the reason being that [facility] sent a referral to [facility] for a hand specialist, Referral was received 07/10/23. Patient is worried that his finger is now black, his surgery canceled and he has no transportation here to [place] as he lives in [place], patient wanted to be seen as soon as possible but had to schedule a couple days out to get transportation, patient was advised to go to the nearest Emergency room in the mean time, if there is a better solution to this situation please contact patient. Thank you [facility] Vital Signs Date Time Vital Sign Value Performing Clinician Facility 12-14-2023 13:10-0400 Body height 165.1 cm Luca NOONAN [facility] Comment on above: stated 12-14-2023 13:10-0400 Respiratory rate 16 /min Luca NOONAN Work Phone: [facility] 12-05-2023 08:10-0400 Body height 165.1 cm Ashley Mckenna APRN-TERRENCE Work Phone: [facility] 12-05-2023 08:10-0400 Body mass index (BMI) [Ratio] 33.25 kg/m2 Ashley Mckenna APRN-PROMOTIONS MANAGER Work Phone: [facility] 12-05-2023 08:10-0400 Body temperature 98.01 [degF] Ashley Mckenna APRN-PROMOTIONS MANAGER Work Phone: [facility] 12-05-2023 08:10-0400 Body weight 90.63 kg Ashley Mckenna APRN-PROMOTIONS MANAGER Work Phone: [facility] 12-05-2023 08:10-0400 Diastolic blood pressure 80 mm[Hg] Ashley Mckenna APRN-PROMOTIONS MANAGER Work Phone: [facility] 12-05-2023 08:10-0400 Heart rate 77 /min Ashley Mckenna APRN-PROMOTIONS MANAGER Work Phone: [facility] 12-05-2023 08:10-0400 Respiratory rate 18 /min Ashley Mckenna APRN-PROMOTIONS MANAGER Work Phone: [facility] [employer] 12-05-2023 08:10-0400 SaO2% (BldA) [Mass fraction] 96 % Ashley Mckenna APRN-PROMOTIONS MANAGER Work Phone: [facility] 12-05-2023 08:10-0400 Systolic blood pressure 130 mm[Hg] Ashley Mckenna APRN-PROMOTIONS MANAGER Work Phone: [facility] 09-27-2023 13:58-0500 Body height 165.1 cm Ashley Mckenna BOAT WORKER-PROMOTIONS MANAGER Work Phone: [facility] 09-27-2023 13:58-0500 Body mass index (BMI) [Ratio] 32.6 kg/m2 Ashley Mckenna BOAT WORKER-PROMOTIONS MANAGER Work Phone: [facility] 09-27-2023 13:58-0500 Body temperature 98.29 [degF] Ashley Mckenna APRN-TERRENCE Work Phone: [facility] 09-27-2023 13:58-0500 Body weight 88.86 kg Ashley Mckenna APRN-PROMOTIONS MANAGER Work Phone: [facility] 09-27-2023 13:58-0500 Diastolic blood pressure 84 mm[Hg] Ashley Mckenna APRN-TERRENCE [facility] 09-27-2023 13:58-0500 Heart rate 74 /min Ashley Mckenna APRN-TERRENCE [facility] 09-27-2023 13:58-0500 SaO2% (BldA) [Mass fraction] 95 % Ashley Mckenna APRN-TERRENCE Work Phone: [facility] 09-27-2023 13:58-0500 Systolic blood pressure 140 mm[Hg] Ashley Mckenna APRN-TERRENCE Work Phone: [facility] Encounters Encounter Date Encounter Type Care Provider Facility Start: 12-14-2023 End: 12-14-2023 Orders Only Ashley Mckenna APRN-TERRENCE Work Phone: [facility] - [facility] Comment on above: Lung bullae (CMS-HCC ) (Primary Dx); Lung nodule seen on imaging study Start: 12-14-2023 End: 12-14-2023 Office outpatient new 45 minutes Luca NOONAN Work Phone: [facility] Comment on above: Lumbosacral spondylo sis without myelopathy (Primary Dx); Lumbar back pain with radiculopathy affecting left lower extremity; Disc displacement, lumbar; Lumbar radiculopathy, chronic Start: 12-11-2023 Telephone encounter Ashley Mckenna APRN-TERRENCE Work Phone: [facility] - [facility] Start: 12-05-2023 End: 12-06-2023 ambulatory ASHLEY [facility] Start: 12-05-2023 Encounter for genera l adult medical examination without abnormal findings [facility] Start: 12-05-2023 End: 12-05-2023 ambulatory [facility] Start: 12-05-2023 Encounter for genera l adult medical examination without abnormal findings [facility] Start: 12-05-2023 End: 12-05-2023 Patient encounter procedure Ashley Mckenna BOAT WORKER-PROMOTIONS MANAGER Work Phone: [facility] Start: 12-05-2023 End: 12-05-2023 Periodic preventive med est patient 40-64yrs Ashley Vicky Bala BOAT WORKER-PROMOTIONS MANAGER [facility] Comment on above: Annual physical exam (Primary Dx); Lung nodule seen on imaging study; Blood tests for routine general physical examination; Encounter for screening for malignant neoplasm of prostate; Lumbar back pain with radiculopathy affecting left lower extremity; Muscle spasm of back Start: 12-05-2023 End: 12-05-2023 Physical examination Ashley Vicky Bala BOAT WORKER-PROMOTIONS MANAGER Work Phone: [facility] Start: 11-24-2023 Telephone encounter Yesi Keila Avalos APRN-PROMOTIONS MANAGER Work Phone: [facility] General [facility] Start: 11-15-2023 End: 11-16-2023 ambulatory [facility] Start: 09-28-2023 Patient encounter procedure Monique Fong [facility] Start: 09-27-2023 End: 09-27-2023 ambulatory [facility] Start: 09-27-2023 End: 09-27-2023 Office outpatient new 30 minutes Ashley J Bala BOAT WORKER-PROMOTIONS MANAGER Work Phone: [facility] - [facility] Comment on above: Lumbar back pain wit h radiculopathy affecting left lower extremity (Primary Dx); Muscle spasm of back Start: 08-16-2023 End: 08-16-2023 ambulatory [facility] Start: 08-01-2023 End: 08-01-2023 ambulatory [facility] Start: 07-27-2023 ambulatory NICOLE NITIN [facility] Start: 07-27-2023 End: 07-27-2023 ambulatory [facility] Start: 07-17-2023 End: 07-17-2023 ambulatory [facility] Start: 07-12-2023 End: 07-12-2023 ambulatory WILLI BERMUDEZ [facility] Procedures Date Procedure Procedure Detail Performing Clinician Start: 12-05-2023 Adult depression scr eening assessment Ashley Mckenna BOAT WORKER-PROMOTIONS MANAGER Work Phone: Start: 09-27-2023 Adult depression scr eening assessment Ashley Mckenna BOAT WORKER-PROMOTIONS MANAGER Work Phone: Start: 08-03-2023 Colonoscopy Ashley davis BOAT WORKER-PROMOTIONS MANAGER Work Phone: Plan of Treatment Date Care Activity Detail Author Start: 08-03-2033 Screening for malign ant neoplasm of colon Colonoscopy [facility] Start: 07-03-2033 DTaP,Tdap and Td Vaccines (2 - Td or Tdap) DTaP,Tdap and Td Vaccines (2 - Td or Tdap) [facility] Start: 12-13-2024 Tobacco Screening Tobacco Screening [facility] Start: 12-04-2024 Adult BMI Follow Up Plan Adult BMI Follow Up Plan [facility] Start: 12-04-2024 Adult BMI Screening Adult BMI Screen ing [facility] Start: 12-04-2024 Depression Screening Depression Scre ening [facility] Start: 12-04-2024 Tobacco Screening Tobacco Screening [facility] Start: 09-27-2024 Adult BMI Follow Up Plan Adult BMI Follow Up Plan [facility] Start: 09-27-2024 Adult BMI Screening Adult BMI Screen ing [facility] Start: 09-27-2024 Depression Screening Depression Scre ening [facility] Start: 09-27-2024 Tobacco Screening Tobacco Screening [facility] Start: 02-13-2024 End: 12-13-2024 CT Chest WO contrast CT chest without contrast Imaging Routine Lung bullae (CMS-HCC) Lung nodule seen on imaging study Expected: 02/13/2024 (Approximate), Expires: 12/13/2024 [facility] Work Phone: Comment on above: Expected: 02/13/2024 (Approximate), Expires: 12/13/2024 Start: 01-25-2024 End: 01-25-2024 Patient encounter procedure 01/25/2024 10:15 AM EDT Office Visit [facility] [address] [place] [id number] Luca Millan PA [address] [place], [place] [id number] [facility] Start: 12-15-2023 End: 12-15-2023 Patient encounter procedure 12/15/2023 10:00 AM EDT Appointment [facility] [address] [place] [address] [facility] Start: 12-14-2023 End: 12-14-2023 Patient encounter procedure 12/14/2023 1:00 PM EDT Office Visit [facility] [address] [place] [place] [address] Luca Millan PA [address] [place], [place] [id number] [facility] Start: 12-07-2023 End: 12-07-2023 Patient encounter procedure 12/07/2023 12:00 PM EDT Office Visit [facility] [address] [place] [phone] Luca Millan, PA [address] [place], [place] [phone] [facility] Start: 12-05-2023 End: 12-04-2024 CT Chest for screening WO contrast CT low dose lung screening (Annual) Imaging Routine Lung nodule seen on imaging study Expected: 12/05/2023, Expires: 12/04/2024 [facility] Work Phone: Comment on above: Expected: 12/05/2023 , Expires: 12/04/2024 Start: 12-05-2023 End: 12-05-2023 Patient encounter procedure 12/05/2023 8:15 AM EDT Office Visit [facility] [address] [place] [address] [place] [address] Ashley Mckenna, BOAT WORKER-[employer]OTIONS MANAGER [address] [place] [address] [facility] Start: 11-06-2023 End: 11-06-2023 Patient encounter procedure 11/06/2023 10:30 AM EST Office Visit [facility] [address] [place] [address] Ashley Mckenna, BOAT WORKER-PROMOTIONS MANAGER [address] [place] [address] [facility] Start: 09-28-2023 End: 09-28-2023 Patient encounter procedure 09/28/2023 1:00 PM EST Office Visit [facility] [address] [place] [id number] Berenice Pantoja, DO [address] [address] [facility] Start: 09-27-2023 End: 09-27-2024 XR Lumbar spine 2 or 3 Views X-ray spine lumbar 2 or 3 views Imaging Routine Lumbar back pain with radiculopathy affecting left lower extremity Expected: 09/27/2023, Expires: 09/27/2024 [facility] Work Phone: Comment on above: Expected: 09/27/2023 , Expires: 09/27/2024 Start: 2020 Administration of varicella zoster vaccine Zoster (Shingles) Vaccine (1 of 2) [facility] Start: 1988 Adult BMI Follow Up Plan Adult BMI Follow Up Plan [facility] [facility] Start: 1970 Tobacco [facility] End: 12-04-2024 CBC W Auto Differential panel - Blood CBC auto differential Lab Routine Blood tests for routine general physical examination 1 Occurrences starting 12/05/2023 until 12/04/2024 [facility] Comment on above: 1 Occurrences starti ng 12/05/2023 until 12/04/2024 End: 12-04-2024 Comprehensive metabolic 2000 panel - Serum or Plasma Comprehensive metabolic panel Lab Routine Blood tests for routine general physical examination 1 Occurrences starting 12/05/2023 until 12/04/2024 [facility] Comment on above: 1 Occurrences starti ng 12/05/2023 until 12/04/2024 End: 12-04-2024 Hemoglobin A1c/Hemoglobin.total in Blood Hemoglobin A1c Lab Routine Blood tests for routine general physical examination 1 Occurrences starting 12/05/2023 until 12/04/2024 [facility] Comment on above: 1 Occurrences starti ng 12/05/2023 until 12/04/2024 End: 12-04-2024 Lipid 1996 panel - Serum or Plasma Lipid profile Lab Routine Blood tests for routine general physical examination 1 Occurrences starting 12/05/2023 until 12/04/2024 [facility] Comment on above: 1 Occurrences starti ng 12/05/2023 until 12/04/2024 End: 12-13-2024 MR Lumbar spine WO contrast MR lumbar spine without contrast Imaging Routine Lumbar radiculopathy, chronic 1 Occurrences starting 12/14/2023 until 12/13/2024 [employer] Work Phone: Comment on above: 1 Occurrences starti ng 12/14/2023 until 12/13/2024 End: 12-04-2024 Prostatic specific antigen screen Prostatic specific antigen screen Lab Routine Encounter for screening for malignant neoplasm of prostate 1 Occurrences starting 12/05/2023 until 12/04/2024 [facility] Comment on above: 1 Occurrences starti ng 12/05/2023 until 12/04/2024 End: 12-04-2024 Thyrotropin [Units/volume] in Serum or Plasma TSH Lab Routine Blood tests for routine general physical examination 1 Occurrences starting 12/05/2023 until 12/04/2024 [facility] Comment on above: 1 Occurrences starti ng 12/05/2023 until 12/04/2024 Immunizations Immunization Date Immunization Notes Care Provider Fa jennifer 07-03-2023 tetanus toxoid, redu juliet diphtheria toxoid, and acellular pertussis vaccine, adsorbed Ashleyeleonora Mckenna BOAT WORKER-PROMOTIONS MANAGER Work Phone: [facility] Payers Date Payer Category Payer Medicaid [id number] 2023 Medicaid [id number] 2023 Unknown [id number] 2023 Private Health Insurance [facility] [employer] [id number] 2023-Present [phone] [address] [place] [address] [id number] 2023 Unknown [id number] 1970 Unknown [id number] 1970 Unknown [id number] 1970 Unknown [id number] 1970 Unknown [id number] 1970 Unknown [id number] Social History Date Type Detail Facility Start: [facility]-27-2023 [facility] History of tobacco use Cigarette Smoker P [facility] Start: 09-27-2023 End: 12-14-2023 Cigarettes smoked current (pack per day) - Reported 1 [facility] Start: 09-27-2023 End: 12-14-2023 Tobacco use and exposure Smokeless tobacco non-user [facility] Start: 09-27-2023 End: 12-14-2023 Alcohol intake Ex-drinker (finding) [facility] Start: 09-27-2023 End: 12-14-2023 Tobacco use panel [facility] Adolescent depressio n screening assessment 6 [facility] Start: 09-27-2023 Tobacco Comment Pt is ready to quit smoking [facility] Start: 1970 Sex Assigned At Not on file P [facility] Start: 12-14-2023 Tobacco smoking stat [facility] Ex-smoker [facility] History of tobacco use Current smoker [facility] Clinical Notes 07-12-2023 to 12-14-2023 SHAISTA Hurley - 12/14/2023 1:00 PM EDTTelephone Encounter - Bailey Gamble - 12/11/2023 2:55 PM EDTTelephone Encounter - Bailey Gamble - 12/11/2023 2:55 PM EDT Note Date & Type Note Facility 12-14-2023 History of Presen t illness Narrative [facility] [address] [place] [address] Patient: Aleksandar Gardner Sex: male : 1970 Age: 53 y.o. PCP: Ashley Mckenna, BOAT WORKER-PROMOTIONS MANAGER 12/14/2023 Aleksandar Gardner is here for a(n) initial consultation for low back pain that radiates to posterior and lateral aspects of bilateral thighs. The pain is the worst with transitioning from sitting to standing or standing to sitting. Chief Complaint Patient presents with Back Pain HPI: Back Pain This is a chronic (6 years ago (2018)) problem. Episode onset: 09/29/2023- gradually. The problem occurs constantly. The problem has been gradually worsening since onset. The pain is present in the gluteal, lumbar spine and sacro-iliac. The quality of the pain is described as aching (sharp shooting to post/lat aspect of thighs R>L). The pain radiates to the right thigh and left thigh. The pain is at a severity of 7/10. The pain is severe. The pain is The same all the time (increases with transitioning). The symptoms are aggravated by twisting and standing (ambulation, stairs, cough, sneeze, transitioning , cold, lifting, transitioning). Stiffness is present All day. Associated symptoms include leg pain (BLE), numbness (N/T thighs), tingling (N/T thighs) and weakness (BLE). Pertinent negatives include no bladder incontinence, bowel incontinence or chest pain. He has tried muscle relaxant, heat, walking and NSAIDs (prednisone, Robxin,rest, IBU, -mild relief) for the symptoms. The effect of pain on patient's ADLS: Moderate Impairment. Past Medical History: Diagnosis Date Anxiety Arthritis Asthma Cataract 08/21/2023 Cellulitis right index finger Chronic cough COPD (chronic obstructive pulmonary disease) ([facility]) GERD (gastroesophageal reflux disease) History of pleurisy Hx of lipoma Migraine Sleep apnea Stomach ulcer Past Surgical History: Procedure Laterality Date AMPUTATION OF REPLICATED FINGERS 08/14/2023 RT INDEX COLONOSCOPY DIAGNOSTIC / SCREENING N/A 08/03/2023 Performed by Se Calderón DO at [facility] FINGER SURGERY Right index, from cellulitis LIPOMA RESECTION PLEURAL SCARIFICATION Right 02/2013 No Known Allergies Family History Problem Relation Age of Onset Cancer Mother Breast cancer Mother Cancer Father Social History Socioeconomic History Marital status: Spouse name: Not on file Number of children: Not on file Years of education: Not on file Highest education level: Not on file Occupational History Not on file Tobacco Use Smoking status: Former Packs/day: 1 Types: Cigarettes Smokeless tobacco: Never Tobacco comments: Pt is ready to quit smoking Vaping Use Vaping Use: Never used Substance and Sexual Activity Alcohol use: Not Currently Drug use: Not Currently Types: Methamphetamines Comment: clean since 2021 Sexual activity: Yes Partners: Female Comment: Other Topics Concern Not on file Social History Narrative Not on file Social Determinants of Health Financial Resource Strain: Not on file Food Insecurity: Food Insecurity Present (12/14/2023) Hunger Screening Food Insecurity - Worry: Often True Food Insecurity - Inability: Often True Transportation Needs: Not on file Physical Activity: Not on file Stress: Not on file Social Connections: Not on file Interpersonal Safety: Not on file Housing Instability: Not on file Review of Systems HENT: Negative. Respiratory: Positive for cough and shortness of breath. Cardiovascular: Negative for chest pain. Gastrointestinal: Negative for bowel incontinence, constipation and diarrhea. Genitourinary: Negative for bladder incontinence, difficulty urinating, frequency and urgency. Musculoskeletal: Positive for back pain. Skin: Negative. Neurological: Positive for tingling (N/T thighs), weakness (BLE) and numbness (N/T thighs). Psychiatric/Behavioral: Negative for agitation and suicidal ideas. Vital Signs: Resp 16 Ht 165.1 cm (5' 5 ) Comment: stated BMI 33.25 kg/m Physical Exam: GENERAL - Healthy patient that appears stated age. HEENT - Normocephalic / Atraumatic, Extraoccular movements intact, trachea midline, thyroid within normal limits. CV - pulse regular, Warm extremities with appropriate color of nailbeds. RESP - No obvious wheezing, No Shortness of Breath, No overexertion response to exam maneuvers. COORDINATION - remains intact. PSYCH - Alert and Oriented x4, Attentive and appropriate, constitutionally normal, displays normal mood and affect per situation, answered questions appropriately during examination, demonstrated appropriate attention during discussion, demonstrated appropriate cognitive reasoning and understanding of the medical condition by asking appropriate questions regarding the diagnosis and risks/benefits/alternatives of treatment modalities. No obvious deficits in memory, reasoning, or intellect. Lumbar: SKIN - No rashes or bruising in the area of the patient s pain. LYMPH NODES - demonstrate no obvious enlargement. EXTREMITIES - Lower extremities are warm, with minimal edema and palpable pulses. Tenderness to palpation noted in the lumbar spine and paraspinal musculature. Pain is elicited with flexion, extension, and lateral rotation of the lumbar spine. Range of motion is diminished with these motions due to pain. Facet palpation is noted to be somewhat tender and facet loading maneuvers are mildly positive, but not concordant with the patient s normal pain complaints. STRENGTH - noted to be 5 out of 5 all muscle groups bilateral lower extremities including muscles involving hip flexion and abduction, knee flexion and extension, as well as foot dorsiflexion and plantarflexion. No notable atrophy, fasciculations or spasm. SENSORY - No notable sensory deficits in the bilateral lower extremities to touch or pinprick in all dermatomal distributions with exception to decreased sensation in the Right L5 levels. Straight Leg Raise is Positive on the Right Gait is normal. Assessment/Treatment Plan: Aleksandar was seen today for back pain. Diagnoses and all orders for this visit: Lumbosacral spondylosis without myelopathy - Ambulatory referral to Physical Therapy; Future Lumbar back pain with radiculopathy affecting left lower extremity - [facility] [place], [place] Disc displacement, lumbar - Ambulatory referral to Physical Therapy; Future Lumbar radiculopathy, chronic - MR lumbar spine without contrast; Future Physical/Aquatic Therapy - It is felt that the patient will benefit from a course of physical therapy focusing on the above mentioned diagnosis. We will recommend that the physical therapist fully evaluate and treat at their discretion considering the modalities that are most useful for the condition being treated. This may include modalities of comfort including moist heat, ultrasound, and TENS therapy. It may also utilize manual therapy and myofascial release for the myofascial component of the patient s pain. It will likely advance to modalities aimed at stabilizing and strengthing the target area while improving range of motion as well. We are also requesting that the physical therapist send notes that will keep our clinic updated to the patient s progress. Lumbar spine MRI - It is felt that additional diagnostic testing is necessary to further evaluate the patients current pain pathology. For this reason, we will order additional imaging noted above. It is hopeful that this study will identify a significant pain generator that will be amenable to therapy. It is felt that this modality is necessary due to the severity and chronicity of symptoms and physical exam findings combined with the lack of recent imaging of the area. An MRI is specifically felt to be necessary due to the physical exam findings noted above and the patient s description of refractory pain in a neuropathic distribution that is not relieved by change in body position and interferes with the patient s activities of daily living Follow up 6 weeks The medications prescribed have been reviewed for medication interactions/contraindications and/or for upcoming procedures: continue current medication regimen without any changes. DISCUSSION: Treatment options discussed with patient and all questions answered to patient's satisfaction. Discussed the rules and regulations surrounding prescription of opioids and compliance at length. Failure to follow the rules and regulation will result in tapering and discontinuation of medications if applicable. With regard to chronic narcotic therapy, at this time, it is felt that the risks significantly outweigh the any possible benefits regarding this modality of therapy in this case. This determination was made after review of the patient s history and severity of condition as well as comorbid conditions. The patients previous use of medications, social history, OARRS Report, and Opioid Risk Assessment Tool were also factored into this decision. Current literature demonstrates significant issues with tolerance and hyperalgesia as well as potential for addiction and abuse with these types of medications and it is generally determined that they should be avoided whenever possible. It was still explained emphatically that we would use every other option to treat the patient s pain including physical therapy, non-narcotic medications, interventional techniques, and consideration of surgery. And although I do not feel that chronic use of narcotics would be in the patient s best interest, I did offer a referral to a tertiary care center for a second opinion regarding custodial use of narcotic medications. Prescribed medication that requires intensive monitoring for toxicity We do not currently prescribe any controlled substance from this practice. The spine model was demonstrated and Xray was reviewed and used to explain the condition. Chronic conditions not treated during this visit that affected my overall medical decision making: Obesity, Anxiety and COPD OARRS: Reviewed. Scribe Statement: Scribed for and in the presence of SAHISTA HURLEY by Giovana [facility] CNA. Provider Statement: I, SHAISTA HURLEY, personally performed the services described in the documentation, as scribed by Giovana South CNA in my presence, and it is both accurate and complete. Giovana South CNA 12/14/23 1401 SHAISTA Hurley 12/14/23 1516 documented in this encounter [facility] 12-11-2023 Miscellaneous Notes ----- Message from MAYO Vazquez sent at 12/11/2023 2:22 PM EDT ----- Reviewed. Inform patient he is prediabetic, A1c is 6.1%, (6.5% is DM). His cholesterol panel is elevated as well. Is the [facility] ordering a cholesterol medication for him? Called the patient and relayed provider result note. [facility] Pravastatin 20 mg @ bedtime although he has not been taking it. He says he needs to start and is wondering what he should do about the prediabetes. Please advise. documented in this encounter [facility] 12-11-2023 Telephone encounter Note ----- Message from MAYO Vazquez sent at 12/11/2023 2:22 PM EDT ----- Reviewed. Inform patient he is prediabetic, A1c is 6.1%, (6.5% is DM). His cholesterol panel is elevated as well. [facility] him? [facility] 12-11-2023 Telephone encounter Note Called the patient and relayed provider result note. [facility] reports [facility] Pravastatin 20 mg @ bedtime although he has not been taking it. He says he needs to start and is wondering what he should do about the prediabetes. Please advise. [facility] 12-05-2023 History of Presen t illness Narrative Images from the original note were not included. [address] [place] [address] SUBJECTIVE: Patient ID: Aleksandar Gardner is a 53 y.o. male. Chief Complaint Patient presents with Annual Exam Presents for annual physical exam. He also goes to [facility] in [place] for psychiatry and PCP services. States his back pain is unresolved. Was seen in September in regards to back pain. Was prescribed Prednisone taper dosing and Robaxin. States he did have moderate improvement but pain was never fully resolved. Lumbar xrays was done. Annual Exam Associated symptoms include arthralgias. Pertinent negatives include no chest pain, chills, coughing, fatigue, fever or headaches. The symptoms are aggravated by twisting, walking, standing and exertion. He has tried rest, sleep, heat and lying down (Prednisone taper and Robaxin) for the symptoms. The treatment provided moderate relief. The following portions of the patient's history were reviewed and updated as appropriate: allergies, current medications, past family history, past medical history, past social history, past surgical history and problem list. Past Surgical History: Procedure Laterality Date AMPUTATION OF REPLICATED FINGERS 08/14/2023 RT INDEX COLONOSCOPY DIAGNOSTIC / SCREENING N/A 08/03/2023 Performed by Se Calderón DO at [facility] FINGER SURGERY Right index, from cellulitis LIPOMA RESECTION PLEURAL SCARIFICATION Right 02/2013 Past Medical History: Diagnosis Date Anxiety Arthritis Cataract 08/21/2023 Cellulitis right index finger COPD (chronic obstructive pulmonary disease) ([facility]) History of pleurisy Hx of lipoma Migraine Stomach ulcer Immunization History Administered Date(s) Administered Tdap 07/03/2023 REVIEW OF SYSTEMS: Review of Systems Constitutional: Negative for chills, fatigue and fever. HENT: Negative for hearing loss and trouble swallowing. Eyes: Negative for pain and visual disturbance. Respiratory: Negative for cough, chest tightness and shortness of breath. Cardiovascular: Negative for chest pain, palpitations and leg swelling. Gastrointestinal: Negative for blood in stool. Endocrine: Negative for polydipsia, polyphagia and polyuria. Genitourinary: Negative for difficulty urinating, dysuria, flank pain, hematuria, scrotal swelling and testicular pain. Musculoskeletal: Positive for arthralgias and back pain. Skin: Negative. Allergic/Immunologic: Negative. Neurological: Negative for seizures, syncope and headaches. Hematological: Does not bruise/bleed easily. Psychiatric/Behavioral: Negative. PHYSICAL EXAMINATION: Vitals: 12/05/23 0810 BP: 130/80 BP Site: Left Arm BP Postition: Sitting Pulse: 77 Resp: 18 Temp: 36.7 C (98 F) TempSrc: Oral SpO2: 96% Weight: 90.6 kg (199 lb 12.8 oz) Height: 165.1 cm (5' 5 ) Patient noted to have elevated BMI and the following intervention(s) were applied: encouragement to exercise. CT CHEST W CONT: 08/08/2023 10:44 AM CLINICAL INDICATION: Interstitial lung disease, lung cysts, multiple lung nodules, pleural thickening.. Technique: Automatic radiation exposure lowering techniques were utilized. Following the intravenous injection of 100 cc of Omnipaque [address] of the chest and sagittal and coronal reformats obtained. All CT scans at this facility use dose modulation, iterative reconstruction, and/or weight based dosing when appropriate to reduce radiation dose to as low as reasonably achievable. . FINDINGS: Comparison: No prior chest CTs available, comparison was made to abdominal CT dated 06/02/2023. Multiple cystic areas in the lungs, worse in the lower lobes with large bullae seen in the right lower chest, correlate for alpha-1 antitrypsin deficiency. There are multiple right pleural plaques and subpleural ill-defined nodularities, some of these contain calcifications such as in the right apex on axial slice #17. Some are associated with the subpleural groundglass opacities indicating an underlying inflammatory process. There is a 3 mm nodule in the left upper lobe on axial slice #44. No pleural or pericardial effusions. Moderate coronary artery calcifications. No enlarged lymph nodes seen in the mediastinum. Osseous structures reveal no lytic or sclerotic lesions. IMPRESSION: 1. Multiple bilateral lower lobe predominant cystic areas and bullae in the right lower chest, correlate for alpha-1 antitrypsin deficiency. 2. Multiple calcified and noncalcified pleural plaques in the right hemithorax with subpleural ill-defined nodularities and areas of haziness suggesting some inflammatory component. 3. Nodule in the left upper lobe measuring 3 mm. 4. Consider follow-up chest CT in 6 month to document stability.. Finalized by Jaylyn Valdes MD on 08/10/2023 4:26 PM Physical Exam Vitals and nursing note reviewed. Constitutional: General: He is not in acute distress. Appearance: He is well-developed. HENT: Head: Normocephalic and atraumatic. Right Ear: Tympanic membrane and external ear normal. Left Ear: Tympanic membrane and external ear normal. Nose: Nose normal. Mouth/Throat: Mouth: Mucous membranes are moist. Pharynx: No oropharyngeal exudate. Eyes: General: No scleral icterus. Right eye: No discharge. Left eye: No discharge. Conjunctiva/sclera: Conjunctivae normal. Pupils: Pupils are equal, round, and reactive to light. Neck: Vascular: No JVD. Cardiovascular: Rate and Rhythm: Normal rate and regular rhythm. Heart sounds: Normal heart sounds. No murmur heard. No friction rub. No gallop. Pulmonary: Effort: Pulmonary effort is normal. No respiratory distress. Breath sounds: Normal breath sounds. Chest: Chest wall: No tenderness. Abdominal: General: Bowel sounds are normal. There is no distension. Palpations: Abdomen is soft. There is no mass. Tenderness: There is no abdominal tenderness. There is no guarding or rebound. Hernia: No hernia is present. Musculoskeletal: General: No tenderness. Normal range of motion. Cervical back: Normal range of motion and neck supple. Lymphadenopathy: Cervical: No cervical adenopathy. Skin: General: Skin is warm and dry. Capillary Refill: Capillary refill takes less than 2 seconds. Findings: No rash. Neurological: Mental Status: He is alert and oriented to person, place, and time. Deep Tendon Reflexes: Reflexes are normal and symmetric. Psychiatric: Mood and Affect: Mood normal. Behavior: Behavior normal. Thought Content: Thought content normal. Judgment: Judgment normal. ASSESSMENT/PLAN: Aleksandar was seen today for annual exam. Diagnoses and all orders for this visit: Annual physical exam Lung nodule seen on imaging study - CT low dose lung screening (Annual); Future Blood tests for routine general physical examination - Comprehensive metabolic panel; Future - CBC auto differential; Future - Lipid profile; Future - Hemoglobin A1c; Future - TSH; Future Encounter for screening for malignant neoplasm of prostate - Prostatic specific antigen screen; Future Lumbar back pain with radiculopathy affecting left lower extremity - [facility] - [place], [place]; Future - methocarbamoL (ROBAXIN-750) 750 mg tablet; Take 1 tablet (750 mg total) by mouth 3 (three) times a day as needed for muscle spasms. Muscle spasm of back - methocarbamoL (ROBAXIN-750) 750 mg tablet; Take 1 tablet (750 mg total) by mouth 3 (three) times a day as needed for muscle spasms. Colonoscopy screening discussed today. Risk and benefits of procedure explained. Patient completed in 2022. Recommendation to repeat due to poor preparation. Discussed this with patient. He plans on reschedule this; has transportation issues. Labs drawn in office today. Body mass index is 33.25 kg/m . Patient noted to have elevated BMI and the following intervention(s) were applied: Discussed current weight today. Consider healthy food choices, portion control. Avoid sugary beverages and high concentrated sweets. Routine exercise regimen encouraged. Incidental findings ill defined lung nodularities. Lung nodule 3 mm left upper lobe. New orders for CT low dose lung as per recommendation repeat in 6 months. Alpha-1 antitrypsin screening completed Referral to pain management for chronic lumbar back pain ALL QUESTIONS ANSWERED Total time spent was 30 minutes: Preparing to see the patient (e.g., review of tests) Obtaining and/or reviewing separately obtained history Performing a medically appropriate examination and/or evaluation Counseling and educating the patient/family/caregiver Ordering medications, tests, or procedures Follow-up: 6 months MAYO Vazquez 12/05/23 0903 documented in this encounter [facility] 11-24-2023 Miscellaneous Notes Aleksandar no called, no showed for his appointment to update his H&P for a colonoscopy. Left message on patients voicemail to call the office back to reschedule this appointment as I was unable to make contact. documented in this encounter [facility] 11-24-2023 Telephone encounter Note Aleksandar no called, no showed for his appointment to update his H&P for a colonoscopy. Left message on patients voicemail to call the office back to reschedule this appointment as I was unable to make contact. [facility] 09-28-2023 History of Presen t illness Narrative [facility] Patient visited the Food Clinic and received food documented in this encounter [facility] 09-27-2023 History of Presen t illness Narrative Images from the original note were not included. [address] [place] [id number] SUBJECTIVE: Patient ID: Aleksandar Gardner is a 53 y.o. male. Chief Complaint Patient presents with New Patient Presents as new patient establishment. He is also monitored by psychiatry for depression and PTSD. 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 Primary concern is left hip pain. Has been occurring for 2 days. Pain intially started left side of lower back. Has history of chronic lower back pain. Is prescribed Motrin [facility]N [facility]. States he is monitored by psychiatry [facility] for [facility] and depression. Is currently taking Wellbutrin, Depakote, and Trazadone (HS). New Patient Associated symptoms include arthralgias. Pertinent negatives include no chest pain, chills, coughing, fatigue, fever or headaches. The following portions of the patient's history were reviewed and updated as appropriate: allergies, current medications, past family history, past medical history, past social history, past surgical history and problem list. Past Surgical History: Procedure Laterality Date AMPUTATION OF REPLICATED FINGERS 08/14/2023 RT INDEX COLONOSCOPY DIAGNOSTIC / SCREENING N/A 08/03/2023 Performed by Se Calderón DO at [facility] FINGER SURGERY Right index, from cellulitis LIPOMA RESECTION PLEURAL SCARIFICATION Right 02/2013 Past Medical History: Diagnosis Date Anxiety Arthritis Cataract 08/21/2023 Cellulitis right index finger COPD (chronic obstructive pulmonary disease) ([facility]) History of pleurisy Hx of lipoma Migraine Stomach ulcer Immunization History Administered Date(s) Administered Tdap 07/03/2023 REVIEW OF SYSTEMS: Review of Systems Constitutional: Negative for chills, fatigue and fever. HENT: Negative for hearing loss and trouble swallowing. Eyes: Negative for pain and visual disturbance. Respiratory: Negative for cough, chest tightness and shortness of breath. Cardiovascular: Negative for chest pain, palpitations and leg swelling. Gastrointestinal: Negative for blood in stool. Endocrine: Negative for polydipsia, polyphagia and polyuria. Genitourinary: Negative for difficulty urinating, dysuria, flank pain, hematuria, scrotal swelling and testicular pain. Musculoskeletal: Positive for arthralgias and back pain. Back and left hip pain. Skin: Negative. Allergic/Immunologic: Negative. Neurological: Negative for seizures, syncope and headaches. Hematological: Does not bruise/bleed easily. Psychiatric/Behavioral: Negative. PHYSICAL EXAMINATION: Vitals: 09/27/23 1358 BP: 140/84 BP Site: Left Arm BP Postition: Sitting Pulse: 74 Temp: 36.8 C (98.3 F) TempSrc: Oral SpO2: 95% Weight: 88.9 kg (195 lb 14.4 oz) Height: 165.1 cm (5' 5 ) Patient noted to have elevated BMI and the following intervention(s) were applied: encouragement to exercise. Physical Exam Vitals and nursing note reviewed. Constitutional: General: He is not in acute distress. Appearance: He is well-developed. HENT: Head: Normocephalic and atraumatic. Right Ear: Tympanic membrane and external ear normal. Left Ear: Tympanic membrane and external ear normal. Nose: Nose normal. Mouth/Throat: Mouth: Mucous membranes are moist. Pharynx: No oropharyngeal exudate. Eyes: General: No scleral icterus. Right eye: No discharge. Left eye: No discharge. Conjunctiva/sclera: Conjunctivae normal. Pupils: Pupils are equal, round, and reactive to light. Neck: Vascular: No JVD. Cardiovascular: Rate and Rhythm: Normal rate and regular rhythm. Heart sounds: Normal heart sounds. No murmur heard. No friction rub. No gallop. Pulmonary: Effort: Pulmonary effort is normal. No respiratory distress. Breath sounds: Normal breath sounds. Chest: Chest wall: No tenderness. Abdominal: General: Bowel sounds are normal. There is no distension. Palpations: Abdomen is soft. There is no mass. Tenderness: There is no abdominal tenderness. There is no guarding or rebound. Hernia: No hernia is present. Musculoskeletal: General: Tenderness present. Normal range of motion. Cervical back: Normal range of motion and neck supple. Lumbar back: Tenderness and bony tenderness present. Negative right straight leg raise test and negative left straight leg raise test. Back: Lymphadenopathy: Cervical: No cervical adenopathy. Skin: General: Skin is warm and dry. Capillary Refill: Capillary refill takes less than 2 seconds. Findings: No rash. Neurological: Mental Status: He is alert and oriented to person, place, and time. Gait: Gait is intact. Deep Tendon Reflexes: Reflexes are normal and symmetric. Psychiatric: Mood and Affect: Mood normal. Behavior: Behavior normal. Thought Content: Thought content normal. Judgment: Judgment normal. ASSESSMENT/PLAN: Aleksandar was seen today for new patient. Diagnoses and all orders for this visit: Lumbar back pain with radiculopathy affecting left lower extremity - X-ray spine lumbar 2 or 3 views; Future - methocarbamoL (ROBAXIN-750) 750 mg tablet; Take 1 tablet (750 mg total) by mouth 3 (three) times a day as needed for muscle spasms. - predniSONE (DELTASONE) 20 mg tablet; Take 1 tablet (20 mg total) by mouth See Admin Instructions. 1 tab 2x daily x3 days, 1 tab daily x3 days, 1/2 tablet daily x4 days Muscle spasm of back - methocarbamoL (ROBAXIN-750) 750 mg tablet; Take 1 tablet (750 mg total) by mouth 3 (three) times a day as needed for muscle spasms. - predniSONE (DELTASONE) 20 mg tablet; Take 1 tablet (20 mg total) by mouth See Admin Instructions. 1 tab 2x daily x3 days, 1 tab daily x3 days, 1/2 tablet daily x4 days May continue Motrin 600 mg oral PRN as directed - ordered by [place] physician for chronic back pain -Start methocarbamol 750 mg oral TID PRN muscle spasms -Start Prednisone taper dosing as directed -xray 3 view lumbar spine -May apply ice or heat to affected area x 20 minutes every 2-4 hours PRN pain -Demonstration of back exercises; provided with discharge instructions Patient is a current smoker, smoking cessation discussed today in office. He/She is not interested at this time Body mass index is 32.6 kg/m . Patient noted to have elevated BMI and the following intervention(s) were applied: Discussed current weight today. Consider healthy food choices, portion control. Avoid sugary beverages and high concentrated sweets. Routine exercise regimen encouraged. ALL QUESTIONS ANSWERED Total time spent was 35 minutes: Preparing to see the patient (e.g., review of tests) Obtaining and/or reviewing separately obtained history Performing a medically appropriate examination and/or evaluation Counseling and educating the patient/family/caregiver Ordering medications, tests, or procedures Follow-up: Annual physical MAYO Vazquez 09/27/23 1626 documented in this encounter [facility] 08-16-2023 Note Attestation signed by Nicole Taveras MD at 08/20/2023 1:43 PM I personally saw and examined the patient on the same date of service as resident/fellow . I discussed the findings and therapeutic plan with the resident/fellow . I agree with the documentation, except for any edits/updates below. Teaching Physician's Revisions: Orthopedic Surgery Subjective Chief complaint: Chief Complaint Patient presents with Right Hand - Post-op 08/16/23 Aleksandar Gardner is a 53 y.o. year old male presenting for postop evaluation of left Index finger revision amputationDate of surgery 08/01/2023. Patient has been doing well since the surgery. Denies fever chills drainage. He did do the dishes after he felt like the incision was healed. He does have a little bit of stiffness of his PIP joint of his left index finger. He does have some decrease sensation the tip of the amputation site. Patient History Past Surgical History: Procedure Laterality Date ABCESS DRAINAGE Right 07/17/2023 integra wound matrix index finger, skin graft application to lower extremity FINGER AMPUTATION Right 08/01/2023 index LIPOMA RESECTION SEVERAL LUNG SURGERY Past Medical History: Diagnosis Date COPD (chronic obstructive pulmonary disease) (CMS/HCC) Pleurisy HISTORY OF Stomach ulcer Objective General: Body mass index is 30.79 kg/m???. No acute distress, comfortable Respiratory: Unlabored breathing with normal rate, no cough Cardiovascular: Warm well perfused extremities Psych: Appropriate mood behavior Left hand: Incision clean dry intact healing well sutures removed in clinic He has some decrease sensation about the amputation site of the left index finger. Otherwise his sensation is intact to light touch M/U/R Patient does have some slight decreased range of motion of all his PIP joints but his left index finger PIP joint has approximately 45 degrees of flexion. He has near full MCP flexion of all his digits And, PIN, ulnar motor function intact Brisk capillary refill x 5 Assessment/Plan Aleksandar Gardner is a 53 y.o. year old male with status post amputation of left index finger at the level of the middle phalanx date of surgery 08/01/2023 patient is overall doing well. No diagnosis found. Discussed clinical findings and sutures removed today. Patient is doing well. We discussed that he will be slightly stiff and that he should work on improving the range of motion of his digit. 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 He is okay to return to this work we just recommend that he covers his tip of his index finger for the next week. We discussed scar massage to prevent sensitivity Nav Olivia MD Orthopedic Surgery Resident Orthopedic Surgery Pager: [phone] 08/16/23 10:12 AM By using the attestations below, the signing clinician agrees that I have read and verify that the documentation has been personally reviewed by me and ensure that the documentation accurately reflects the encounter. GC: I personally saw this patient on the day of the encounter, performed the muniz portion(s) of the service and participated in the management and confirm the resident's documentation. Please note there may be an additional personal documentation from me. [facility] 08-02-2023 Note Attempted to reach p atient regarding his recent procedure with Dr. Taveras (08/01) as well as to confirm his post-operative appointment on 08/16. Patient was unavailable and voicemail box was full, so I was unable to leave a voice message with my contact information for a call back. [facility] 08-01-2023 Note Patient: Aleksandar ramos Procedure Summary Date: 08/01/23 Room / Location: [facility] OR [address] [place] [address] OR Anesthesia Start: 732 Anesthesia Stop: 816 Procedure: INDEX FINGER AMPUTATION (Right: Index Finger) Diagnosis: Necrosis (CMS/HCC) (Necrosis (CMS/HCC) [I96]) Surgeons: Nicole Taveras MD Responsible Provider: Kulwinder Davis MD Anesthesia Type: regional ASA Status: 2 Anesthesia Type: regional Vitals Value Taken Time BP 135/64 08/01/23 0840 Temp 36.4 ???C (97.5 ???F) 08/01/23 0810 Pulse 67 08/01/23 0840 Resp 16 08/01/23 0840 SpO2 97 % 08/01/23 0840 Anesthesia Post Evaluation Patient location during evaluation: bedside Patient participation: complete - patient participated Level of consciousness: awake and alert Pain score: 0 Pain management: adequate Multimodal analgesia pain management approach Airway patency: patent Cardiovascular status: acceptable Respiratory status: acceptable Hydration status: acceptable Patient is hemodynamically stable and is able to be discharged from PACU per anesthesia protocol. No notable events documented. [facility] 08-01-2023 Note Patient: Aleksandar ramos Procedure Information Date/Time: 08/01/23 0730 Procedure: INDEX FINGER AMPUTATION (Right: Index Finger) - DO NOT MOVE TIME DUE TO TRANSPORTATION Location: [facility] OR [address] [place] [address] OR Surgeons: Nicole Taveras MD Relevant Problems Pulmonary (+) COPD (chronic obstructive pulmonary disease) (CMS/HCC) Clinical information reviewed: Allergies Meds Med Hx Surg Hx Fam Hx Physical Exam Airway Mallampati: III TM distance: >3 FB Neck ROM: full Cardiovascular - normal exam Dental Comments: Poor dentition, missing multiple teeth upper and lower Pulmonary - normal exam Abdominal - normal exam Anesthesia Plan ASA 2 MAC The patient is not a current smoker. Patient was not previously instructed to abstain from smoking on day of procedure. Patient did not smoke on day of procedure. Education provided regarding risk of obstructive sleep apnea. intravenous induction Postoperative administration of opioids is intended. Anesthetic plan and risks discussed with patient. Use of blood products discussed with patient who consented to blood products. Plan discussed with attending. Additional Equipment Requests [facility] 07-27-2023 Note Attestation signed by Nicole Tavears MD at 07/30/2023 2:55 PM As the teaching physician, I have personally performed or re-performed the history of present illness, physical exam and medical decision making activities of the encounter and verified the medical student's documentation. I made pertinent changes as necessary to ensure accurate documentation. Orthopedic Surgery Subjective Chief complaint: Chief Complaint Patient presents with Right Index Finger - Post-op 07/27/23 Aleksandar Gardner is a 53 y.o. year old left-hand dominant male presenting for follow-up 10 days s/p I&D of right index finger w/ integra wound application. The patient reports that his pain is much better and it now is only a 5/10. He is currently taking ibuprofen PRN for his pain. He reports that last he sustained a fall in which he landed on his right hand. He presented to [facility]'s ED in [place] three days after this incident, in which the right index was found to be infected. The patient reports that he was told that the wound covering had crusted over and was advised to keep changing his wound covering every day which he has now been doing. Previous Treatments: None ROS: Denies fevers, chills, and other constitutional symptoms. Denies shortness of breath. Patient History Past Surgical History: Procedure Laterality Date ABCESS DRAINAGE Right 07/17/2023 integra wound matrix index finger, skin graft application to lower extremity LIPOMA RESECTION SEVERAL LUNG SURGERY Past Medical History: Diagnosis Date COPD (chronic obstructive pulmonary disease) (CMS/HCC) Pleurisy HISTORY OF Stomach ulcer Objective General: Body mass index is 31.95 kg/m???. There were no vitals filed for this visit. No acute distress, comfortable Respiratory: Unlabored breathing with normal rate, no cough Cardiovascular: Warm well perfused extremities Psych: Appropriate mood behavior MSK: Inability to flex PIP and DIP of right index finger. Skin: Yellow-green pus drainage at site of incision Imaging: No imaging reviewed Assessment/Plan Aleksandar Gardner is a 53 y.o. year old male with Necrosis (CMS/HCC) of right index finger presenting as a follow-up 10 days s/p I&D of right index finger with integra wound application. Patient's site of incision is infected with signs of purulent drainage, and has inability to flex the PIP and DIP of the right index finger. Plan: -Stiches of right index were taken out today, and irrigated with saline. The patient's wound was wrapped with a wet and dry wrapping. -We discussed with the patient conservative management and amputation of right index finger to prevent further spread of infection and amputation of other fingers. The patient elected to undergo amputation of the right index and will be scheduled for it. Signed: Wade Cornell, MS3 [facility] 07-19-2023 Note Attempted to reach p atient regarding his procedure with Dr. Taveras (07/17) as well as to confirm his post-operative appointment on 07/27. Call could not be completed to the number listed, so I was unable to leave a voice message with my contact information for a call back. [facility] 07-17-2023 Note Patient: Aleksandar Prescott oss Procedure Summary Date: 07/17/23 Room / Location: [facility] OR [address] [place] [address] [facility] OR Anesthesia Start: 1255 Anesthesia Stop: 1342 Procedure: I&D Index Finger with Integra wound matrix application (Right: Index Finger) Diagnosis: Necrosis (CMS/HCC) (Necrosis (CMS/HCC) [I96]) Surgeons: Nicole Taveras MD Responsible Provider: Tri Bunch MD Anesthesia Type: MAC ASA Status: 3 Anesthesia Type: MAC Vitals Value Taken Time BP 137/65 1030/23 1420 Temp 36.3 ???C (97.3 ???F) 07/17/23 1420 Pulse 70 07/17/23 1420 Resp 18 07/17/23 1420 SpO2 98 % 07/17/23 1420 Anesthesia Post Evaluation Patient location during evaluation: PACU Patient participation: complete - patient participated Level of consciousness: awake and alert Pain score: 0 Pain management: adequate Airway patency: patent Cardiovascular status: acceptable, hemodynamically stable and stable Respiratory status: acceptable Hydration status: euvolemic Patient is hemodynamically stable and is able to be discharged from PACU per anesthesia protocol. No notable events documented. [facility] 07-17-2023 Note Patient: Aleksandar ramos Procedure Summary Date: 07/17/23 Room / Location: [facility] OR [address] [place] [address] OR Anesthesia Start: 1255 Anesthesia Stop: Procedure: I&D Index Finger with Integra wound matrix application (Right: Index Finger) Diagnosis: Necrosis (CMS/HCC) (Necrosis (CMS/HCC) [I96]) Surgeons: Nicole Taveras MD Responsible Provider: Tri Bunch MD Anesthesia Type: MAC ASA Status: 3 Anesthesia Post Transport Note Transport to: PACU O2 Route: face mask Oxygen Flow (L/min): 8 Patient Monitor: direct observation Transport: uneventful Patient condition is: stable [facility] 07-17-2023 Note Patient: Aleksandar ramos Procedure Information Date/Time: 07/17/23 1215 Procedure: I&D Index Finger with A-Cell Application (Right: Index Finger) Location: [address] Surgeons: Nicole Taveras MD Relevant Problems No relevant active problems Clinical information reviewed: Tobacco Allergies Med Hx Surg Hx Fam Hx Soc Hx Physical Exam Airway Mallampati: II TM distance: >3 FB Neck ROM: full Cardiovascular - normal exam Rhythm: regular Rate: normal Dental - normal exam Pulmonary - normal exam Abdominal - normal exam Abdomen: soft Bowel sounds: normal Other findings: Reflux COPD, smoker 1/2 ppd Anesthesia Plan ASA 3 MAC (Discussed standard ASA monitoring and MAC. All questions answered. Patient agreeable to the plan and wishes to proceed.) The patient is a current smoker. Patient was previously instructed to abstain from smoking on day of procedure. Patient did not smoke on day of procedure. Education provided regarding risk of obstructive sleep apnea. intravenous induction Postoperative administration of opioids is intended. Anesthetic plan and risks discussed with patient. Use of blood products discussed with patient who consented to blood products. Plan discussed with OPTICAL INSTRUMENT INSPECTOR. Additional Equipment Requests [facility] 07-12-2023 Note Attestation signed by Nicole Taveras MD at 07/17/2023 12:36 PM I personally saw and examined the patient on the same date of service as resident/fellow . I discussed the findings and therapeutic plan with the resident/fellow . I agree with the documentation, except for any edits/updates below. Teaching Physician's Revisions: Orthopedic Surgery Subjective Pain of the Right Index Finger 07/12/23 Aleksandar Gardner is a 53 y.o. year old male presenting for evaluation of a wound to the volar aspect of the distal phalanx on the right second digit. Patient states that about 2 months ago he noticed swelling and discoloration to the entire second digit. He went to an ED and was given a course of Keflex which helped to decrease the swelling. However his pain is persisted and he most recently went to an ED on 07/07 due to noted discoloration of the volar aspect of the second distal phalanx. He stated that the area turned black and became hard. There was an area of fluctuance beneath the discoloration. He is continue to take antibiotics for this with no relief. Today he states that his pain is around a 7 out of 10. He states his only area of numbness is the area of discoloration. He is a chronic smoker Patient History Past Surgical History: Procedure Laterality Date LUNG SURGERY History reviewed. No pertinent past medical history. No Known Allergies Current Outpatient Medications Medication Instructions cephalexin (KEFLEX) 500 mg, oral, 2 times daily Objective General: Body mass index is 29.95 kg/m???. No acute distress, comfortable Respiratory: Unlabored breathing on RA, no cough Cardiovascular: Warm well perfused extremities Psych: Appropriate mood behavior Right Hand: Inspection- 3 cm diameter area of necrotic tissue on volar 2nd distal phalanx with rim of erythema Tender to palpation over right second distal phalanx, with area of fluctuance beneath area of necrosis Nontender to palpation over rest of 2nd digit Thumb: normal A1 concepcion and AROM, Long finger: normal A1 concepcion and AROM, Ring finger: normal A1 concepcion and AROM, Small finger: normal A1 concepcion and AROM, and Index finger AROM and PROM limited due to swelling Strength: dope firer 5/5, thumb 5/5, interossei 5/5 Sensation: intact over median, ulnar, and radial nerve distributions Cardiovascular: Well-perfused digits Imaging personally reviewed and our interpretation: No new imaging collected at this visit Assessment/Plan Aleksandar Gardner is a 53 y.o. year old male with necrosis and possible cellulitis to the right second distal phalanx Plan: - Plan for excisional debridement of the right 2nd distal phalanx and Acell application next week - Patient was educated on conservative and operative treatment options and has elected to proceed with the above procedure - Patient was informed of preoperative instructions - Patient will continue to manage pain with ibuprofen, ice and elevation Toño Holder MD Orthopaedic Surgery PGY-1 [facility] 07/12/23 11:27 AM By using the attestations below, the signing clinician agrees that I have read and verify that the documentation has been personally reviewed by me and ensure that the documentation accurately reflects the encounter. GC: I personally saw this patient on the day of the encounter, performed the muniz portion(s) of the service and participated in the management and confirm the resident's documentation. Please note there may be an additional personal documentation from me. [facility] Evaluation note Diagnosis Lumbar back pain with radiculopathy affecting left lower extremity- Primary Muscle spasm of back documented in this encounter [facility]* Diagnosis Annual physical exam- Primary Routine general medical examination at a health care facility Lung nodule seen on imaging study Blood tests for routine general physical examination Laboratory examination ordered as part of a routine general medical examination Encounter for screening for malignant neoplasm of prostate Lumbar back pain with radiculopathy affecting left lower extremity Muscle spasm of back documented in this [facility]* Diagnosis Lung bullae (CMS-HCC)- Primary Emphysematous bleb Lung nodule seen on imaging study documented [facility] Diagnosis Lumbosacral spondylosis without myelopathy- Primary Lumbar back pain with radiculopathy affecting left lower extremity Disc displacement, lumbar Displacement of lumbar intervertebral disc without myelopathy Lumbar radiculopathy, chronic documented in this encounter [facility]* Attachments The following attachments cannot be sent through Care Everywhere. * Muscle Spasm ED ([place]) * Radiculopathy ([place]) documented [facility] SystemInstructionsNot on file documented [facility]Instructions* Attachments The following attachments cannot be sent through Care Everywhere. * Yearly Physical for Adults ([place]) documented in this encounterPro[facility] SystemInstructionsNot on file documented in this encounterK[facility] SystemInstructionsNot on file documented in this encounterK[facility] SystemInstructionsNot on file documented in this encounterK[facility] SystemReason for referral (narrative)* Consultation (Routine) - Pending Review Specialty Diagnoses / Procedures Referred By Claudia perez Referred To Contact Pain Medicine Diagnoses Lumbar back pain with radiculopathy affecting left lower extremity Ashley Mckenna APRN-CNP [address] [place] [address] [facility] [address] [place] [address] Referral ID Status Reason Start Date Expiration Date Visits Requested Visits Authorized [id number] Pending Review Specialty Services Required 12/05/2023 12/04/2024 1 1 * Diagnostic Imaging (Routine) - Pending Review Specialty Diagnoses / Procedures Referred By Contac t Referred To Contact Radiology Diagnoses Lung nodule seen on imaging study Procedures CT low dose lung screening (Annual) Ashley Mckenna BOAT WORKER-[employer]OTIONS MANAGER [address] [place] [address] Referral ID Status Reason Start Date Expiration Date V isits Requested Visits Authorized [id number] Pending Review 12/05/2023 12/04/2024 1 1 [facility] Summary Purpose Family History No Family History Records FoundNo Family History Records FoundNo Family History Records FoundNo Family History Records Found Advance Directives No Advanced Directives Records FoundNo Advanced Directives Records FoundNo Advanced Directives Records FoundNo Advanced Directives Records Found Reason for Referral Specialty Diagnoses / Procedures Referred By Contac t Referred To Contact Radiology Diagnoses Lung bullae (CMS-HCC) Lung nodule seen on imaging study Procedures CT chest without contrast Ashley Mckenna, BOAT WORKER-[employer] MANAGER [address] [place] [address] Referral ID Status Reason Start Date Expiration Date V isits Requested Visits Authorized [id number] Pending Review 12/14/2023 12/13/2024 1 1 Specialty Diagnoses / Procedures Referred By Contac t Referred To Contact Rehabilitation Diagnoses Lumbosacral spondylosis without myelopathy Disc displacement, lumbar Luca Millan PA [address], [address] [place] [id number] Referral ID Status Reason Start Date Expiration Date Visits Requested Visits Authorized [id number] Pending Review Specialty Services Required 12/14/2023 12/13/2024 1 1 Specialty Diagnoses / Procedures Referred By Contac t Referred To Contact Radiology Diagnoses Lumbar radiculopathy, chronic Procedures MR lumbar spine without contrast Luca Millan, SHAISTA [address], [address] [place] [address] Referral ID Status Reason Start Date Expiration Date V isits Requested Visits Authorized [id number] Pending Review 12/14/2023 12/13/2024 1 1 Additional Source Comments (unrecognized sect ion and content) No Status Records FoundNo Status Records FoundNo Status Records FoundNo Status Records Found INFORMATION SOURCE (unrecogn ized section and content) DATE CREATED AUTHOR 08/22/2023 [facility] DATE CREATED AUTHOR AUTHOR'S ORGANIZ ATION 12/05/2023 [facility] DATE CREATED AUTHOR AUTHOR'S ORGANIZ ATION 12/06/2023 [facility] DATE CREATED AUTHOR AUTHOR'S ORGANIZ ATION 12/15/2023 [facility] Reason for Visit (unrecogniz ed section and content) Reason Comments New Patient Reason Comments Annual Exam Reason Comments Back Pain Specialty Diagnoses / Procedures Referred By Claudia perez Referred To Contact Pain Medicine Diagnoses Lumbar back pain with radiculopathy affecting left lower extremity Ashley Mckenna APRN-CNP [address] [place] [address] [facility] [address] [place] [address] Referral ID Status Reason Start Date Expiration Date Visits Requested Visits Authorized [id number] Pending Review Specialty Services Required 12/05/2023 12/04/2024 1 1 Care Teams (unrecognized sec tion and content) Ekg Manager Relationship Specialty Start Date End Date Ashley Mckenna APRN-CNP [address] [place] [address] PCP - General Family Medicine 09/27/23 Ekg Manager Relationship Specialty Start Date End Date Ashley Mckenna APRN-CNP [address] [place] [phone] PCP - General Family Medicine 09/27/23 Ekg Manager Relationship Specialty Start Date End Date Ashley Mckenna APRN-CNP [address] [place] [address] PCP - [facility] Family [facility] 09/27/23 Ekg Manager Relationship Specialty Start Date End Date [facility] [address] [place] [address] PCP - [facility] 09/27/23 Ekg Manager Relationship Specialty Start Date End Date Ashley Mckenna [facility] [address] [place] [address] PCP [facility] 09/27/23 Ekg Manager Relationship Specialty Start Date End Date [facility] [address] [place] [address] PCP - [facility] 09/27/23 FOR RECORDS PERTAINING TO PATIENTS WHO ARE OR HAVE BEEN ENROLLED IN A CHEMICAL DEPENDENCY/SUBSTANCEABUSE PROGRAM, SOME INFORMATION MAY BE OMITTED. This clinical summary was aggregated from multiple sources. Caution should be exercised in using it in the provision of clinical care. This summary normalizes information from multiple sources, and as a consequence, information in this document may materially change the coding, format and clinical context of patient data. In addition, data may be omitted in some cases. CLINICAL DECISIONS SHOULD BE BASED ON THE PRIMARY CLINICAL RECORDS. [facility] [employer] [facility]. provides no warranty or guarantee of the accuracy or completeness of information in this document.
--- NOTE | 2024-06-23 20:52 | ED_ITS ---
HPI - Chest Pain General Chief Complaint: Chest Pain Stated Complaint: Chest Pain Time Seen by Provider: 06/23/24 20:48 Source: patient Mode of arrival: ambulance History of Present Illness HPI narrative: daily smoker. History of COPD presents with productive cough for 3 days. has chest pain with cough. No definite fever. Has sinus headache. chest pain worse with cough. No nausea or vomiting. Given nitro by Squad and it did not help. Related Data Home Medications ?Medication ?Instructions ?Recorded ?Confirmed divalproex 500 mg tablet,extended 500 mg PO DAILY 06/16/23 06/23/24 release 24 hr (Depakote ER) prazosin 1 mg capsule 1 mg PO DAILY 06/16/23 06/23/24 risperidone 1 mg tablet (Risperdal) 1 mg PO DAILY 06/16/23 06/23/24 trazodone 50 mg tablet 50 mg PO DAILY PRN sleep 06/16/23 06/23/24 albuterol sulfate 90 mcg/actuation 2 puff inhalation Q4H PRN 06/23/24 06/23/24 aerosol inhaler shortness of breath or wheezing Allergies Allergy/AdvReac Type Severity Reaction Status Date / Time No Known Drug Allergies Allergy Verified 06/22/23 15:34 Review of Systems ROS Status of ROS 10 or more systems reviewed and unremark able except as noted in history and below [facility] Medical History (Updated 06/23/24 @ 22:35 by Andrei Rodriguez MD) COPD (chronic obstructive pulmonary disease) ?J44.9 - Chronic obstructive pulmonary disease, unspecified (ICD-10) Exam Constitutional Vital Signs, click to edit/add: Last Vital Signs Temp 98.6 F 06/23/24 20:41 Pulse 70 06/23/24 22:20 Resp 21 H 06/23/24 22:20 BP 180/102 H 06/23/24 21:45 Pulse Ox 97 06/23/24 21:50 O2 Del Method Room Air 06/23/24 21:25 Common normals: no apparent distress, average body habitus, oriented x3, no limitations, healthy appearing, alert and well nourished [facility] Common normals: normocephalic and head/scalp atraumatic Other: maxillary sinus tenderness Eye Common normals: PERRL, EOMs intact bilaterally and conjunctivae normal Chest Other: anterior chest wall tenderness. chest pain increases when rising from supine to sitting and vice versa Respiratory Common normals: normal respiratory effort, no retractions, no use of accessory muscles and clear to auscultation bilaterally Cardio Common normals: regular rate, regular rhythm, S1 normal heart sound and S2 normal heart sound GI Common normals: Normal to inspection, nondistended, normoactive bowel sounds present, soft to palpation and non-tender Extremity Common normals: normal to inspection and full ROM Neuro Common normals: oriented x3, CN's II-XII intact bilaterally, moves all extremities and no focal motor deficits Psych Appearance: grossly normal Course Vital Signs Vital signs: Vital Signs Temperature 98.6 F 06/23/24 20:41 Pulse Rate 70 06/23/24 20:41 Respiratory Rate 20 06/23/24 20:41 Blood Pressure 187/107 H 06/23/24 20:41 Pulse Oximetry 98 06/23/24 20:41 Oxygen Delivery Method Room Air 06/23/24 20:41 Temperature 98.6 F 06/23/24 20:41 Pulse Rate 70 06/23/24 22:20 Respiratory Rate 21 H 06/23/24 22:20 Blood Pressure 180/102 H 06/23/24 21:45 Pulse Oximetry 97 06/23/24 21:50 Oxygen Delivery Method Room Air 06/23/24 21:25 MDM - Chest Pain MDM Narrative Medical decision making narrative: patient known history of COPD. daily smoker. Presents with productive cough past 2-3 days and chest pain with cough. Chest wall tender and reproduces symptoms. Covid, influenza neg. cxray without acute infiltrates. patient treated with solumedrol and duoneb. Given first dose of zithromax and discharged home with prednisone and zithromax. working diagnosis of COPD exacerbation and chest wall pain Lab Data Labs: Lab Results 06/23/24 06/23/24 Range/Units 20:45 21:12 WBC 9.2 (4.0-11.0) 10^3/uL RBC 4.88 (4.70-6.10) 10^6/uL Hgb 15.0 (14.0-18.0) g/dL Hct 43.6 (42.0-54.0) % MCV 89.3 (80.0-94.0) fL MCH 30.7 (25.9-34.0) pg MCHC 34.4 (29.9-35.2) g/dL RDW 13.8 (11.0-15.0) % Plt Count 215 (150-450) 10^3/uL MPV 9.3 L (9.5-13.5) fL Neut % (Auto) 60.4 (43.0-75.0) % Lymph % (Auto) 29.6 (20.5-60.0) % Preble % (Auto) 7.6 (1.7-12.0) % Eos % (Auto) 1.8 (0.9-7.0) % Baso % (Auto) 0.3 (0.2-2.0) % Neut # (Auto) 5.5 (1.4-6.5) 10^3/uL Lymph # (Auto) 2.7 (1.2-3.8) 10^3/uL Preble # (Auto) 0.7 (0.3-0.8) 10^3/uL Eos # (Auto) 0.2 (0.0-0.7) 10^3/uL Baso # (Auto) 0.0 (0.0-0.1) 10^3/uL Abs Immat Gran (auto) 0.03 (0.00-0.03) 10^3/uL Imm/Tot Granulo (auto) 0.3 (0.0-0.5) % D-Dimer 0.48 (<=0.59) mg/L FEU Sodium 138 (136-145) mmol/L Potassium 3.4 L (3.5-5.1) mmol/L Chloride 104 (98-107) mmol/L Carbon Dioxide 26.5 (21.0-32.0) mmol/L Anion Gap 10.9 BUN 9.0 (7.0-18.0) mg/dL Creatinine 1.00 (0.70-1.30) mg/dL Est GFR ( Amer) >60 (>=60 mL/min/1.73m^2) Est GFR (Non-Af Amer) >60 (>=60 mL/min/1.73m^2) BUN/Creatinine Ratio 9.0 Glucose 115 H (74-106) mg/dL Calcium 8.9 (8.5-10.1) mg/dL Troponin I High Sens 12.1 (4.0-76.1) pg/mL Influenza Type A Ag Negative Influenza Type B Ag Negative SARS-CoV-2 Ag (CV2AG) Negative (NEGATIVE) Discharge Plan Discharge Chief Complaint: Chest Pain Clinical Impression: Acute exacerbation of chronic obstructive pulmonary disease, Chest wall pain Patient Disposition: Home, Self-Care Prescriptions / Home Meds: No Action prazosin 1 mg capsule 1 mg PO DAILY divalproex [Depakote ER] 500 mg tablet extended release 24 hr 500 mg PO DAILY trazodone 50 mg tablet 50 mg PO DAILY PRN (Reason: sleep) Patient Comments: 1-2 tablets as needed at bedtime for sleep Rx Instructions: 1-2 tablets as needed at bedtime for sleep risperidone [Risperdal] 1 mg tablet 1 mg PO DAILY albuterol sulfate 90 mcg/actuation HFA aerosol inhaler 2 puff INHALATION Q4H PRN (Reason: shortness of breath or wheezing) Print Language: Micronesian Instructions: Acute Bronchitis (ED), COPD (Chronic Obstructive Pulmonary Disease) (ED) Additional Instructions: Zithromax for 5 days, follow directions on packaging. Prednisone daily for 5 days. Follow up with PCP this week. Referrals: Physician,Non-Staff, [Physician] - 1 week
--- NOTE | 2024-06-23 21:01 | ECG_ITS ---
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
--- NOTE | 2024-06-23 21:01 | XR_ITS ---
The [address] [address] Patient Name: BRENDEN GARDNER MRN: [id number] date: 1970 Sex: M Assigned Patient Location: ED.MAIN Current Patient Location: Accession/Order Number: [id number] Exam Date: 06/23/2024 21:50 Report Date: 06/23/2024 23:43 At the request of: TILA VICKERS Procedure: XR chest 1V EXAM: XR chest 1V HISTORY: cough COMPARISON: 06/16/2023 TECHNIQUE: One view chest FINDINGS: There is a vague infiltrate in the lateral right lower lobe. The left lung is clear. The heart size is normal. There is no pleural effusion or pneumothorax. XR/XR chest 1V IMPRESSION: Probable right lower lobe pneumonia. Recommend follow-up imaging to assess for resolution. Electronically authenticated by: DANIEL ADAMS Date: 06/23/2024 23:43
[2024-06-23 21:13] LABS: Basophils Percent Auto 0.3 % (0.2-2.0); Eosinophils Absolute Auto 0.2 10^3/uL (0.0-0.7); Eosinophils Percent Auto 1.8 % (0.9-7.0); Hematocrit 43.6 % (42.0-54.0); Immature Granulocytes Abs Auto 0.03 10^3/uL (0.00-0.03); Immature Granulocytes Pct Auto 0.3 % (0.0-0.5); Lymphocytes Absolute Auto 2.7 10^3/uL (1.2-3.8); Lymphocytes Percent Auto 29.6 % (20.5-60.0); Mean Corpuscular HGB Conc 34.4 g/dL (29.9-35.2); Mean Corpuscular Hemoglobin 30.7 pg (25.9-34.0); Mean Corpuscular Volume 89.3 fL (80.0-94.0); Mean Platelet Volume 9.3 fL (9.5-13.5); Monocytes Absolute Auto 0.7 10^3/uL (0.3-0.8); Monocytes Percent Auto 7.6 % (1.7-12.0); Neutrophils Absolute Auto 5.5 10^3/uL (1.4-6.5); Neutrophils Percent Auto 60.4 % (43.0-75.0); Platelet Count 215 10^3/uL (150-450); Red Blood Count 4.88 10^6/uL (4.70-6.10); Red Cell Distribution Width 13.8 % (11.0-15.0); White Blood Count 9.2 10^3/uL (4.0-11.0)
[2024-06-23 21:21] LABS: D Dimer 0.48 mg/L FEU (<=0.59)
[2024-06-23 21:27] LABS: Anion Gap 10.9; Calcium 8.9 mg/dL (8.5-10.1); Carbon Dioxide 26.5 mmol/L (21.0-32.0); Chloride 104 mmol/L (98-107); Estimated GFR (African America >60 (>=60 mL/min/1.73m^2); Estimated GFR (Non-African Ame >60 (>=60 mL/min/1.73m^2); Glucose 115 mg/dL (74-106); Potassium 3.4 mmol/L (3.5-5.1); Sodium 138 mmol/L (136-145); Troponin I High Sensitivity 12.1 pg/mL (4.0-76.1)
[2024-06-23] MEDS: IPRATROPIUM/ALBUTEROL SULFATE 3 ML AMPUL.NEB IH (21:28)
[2024-06-23 21:29] LABS: Influenza Virus A Antigen Negative; Influenza Virus B Antigen Negative; Internal Control Within Normal Limits
[2024-06-23 21:30] LABS: Internal Control Within Normal Limits; SARS-CoV-2 Ag NEGATIVE (NEGATIVE)
[2024-06-23] MEDS: METHYLPREDNISOLONE SOD SUCC PF 125 MG/2 ML VIAL IVP (21:32)
[2024-06-23] MEDS: AZITHROMYCIN 250 MG TABLET 500 MG PO (22:43)
== END 2024-06-23 23:03 | disposition home or self-care (01) ==
PROVIDERS: Emergency Provider Internal Medicine; PCP Family Medicine
DX: J44.1 Chronic obstructive pulmonary disease with (acute) exacerbation (principal); R07.89 Other chest pain; F17.200 Nicotine dependence, unspecified, uncomplicated; Z20.822 Contact with and (suspected) exposure to COVID-19
CPT/HCPCS: 36415; 71045; 80048; 84484; 85025; 85378; 87804; 87811; 93005; 94640; 96374; 99285; J2919

== ENCOUNTER 2025-04-19 09:08 | Emergency (ER) | payer SELFPAY ==
[2025-04-19 09:09] VITALS: BP 186/112; PULSE 73; TEMP 37; O2SAT 98; BMI 35.8
--- OUTSIDE RECORDS SUMMARY | 2025-04-19 09:16 | XMS_ITS | CCD ---
Author Organization [facility] Care Team Providers Care Anesthesia Assistant Name Role Phone NICOLE TAVERAS Attending Unavailable WILLI BERMUDEZ Referring Unavailable NITIN, NICOLE Attending Unavailable NITIN, NICOLE Attending Unavailable NITIN, NICOLE Admitting Unavailable NITIN, NICOLE Attending Unavailable NITIN, NICOLE Admitting Unavailable NITIN, NICOLE Attending Unavailable WILLI BERMUDEZ Referring Unavailable ASHLEY MCKENNA Attending Unavailable ASHLEY MCKENNA Referring Unavailable ASHLEY MCKENNA Primary Care Unavailable ASHLEY MCKENNA Attending Unavailable SEN FREY Referring Unavailable MCKENNA, ASHLEY Perry Primary Care Unavailable ASHLEY MCKENNA Referring Unavailable MCKENNA, ASHLEY Perry Primary Care Unavailable ASHLEY MCKENNA Referring Unavailable ERNESTINE, ASHLEY Perry Primary Care Unavailable LUCA MILLAN Attending Unavailable ASHLEY MCKENNA Referring Unavailable MCKENNAASHLEY WHITE Primary Care Unavailable Mckenna HEADLIGHT ASSEMBLER-ROTOGRAVURE PRESS OPERATOR, Ashley Perry Primary Care Provid er Medications Current Medications Medication Drug Class(es) Dates Sig (Normalized) Sig (Original) [id number] 200 actuat albuterol 0.09 mg/actuat metered dose inhaler (8 sources) beta2-Adrenergic Agonist take 2 puff(s) by inhalation every six hours as needed for wheezing albuterol (PROVENTIL HFA;VENTOLIN HFA) 90 mcg/actuation inhaler Inhale 2 puffs every 6 (six) hours as needed for wheezing. 0 Active buPROPion hydrochloride 100 mg oral tablet (8 sources) Aminoketone take 1.5 tablets by mouth in the morning, then take 1.5 tablets by mouth at bedtime buPROPion (WELLBUTRIN) 100 mg tablet Take 1.5 tablets (150 mg total) by mouth in the morning and 1.5 tablets (150 mg total) before bedtime. 0 Active ibuprofen 600 mg oral tablet (8 sources) Nonsteroidal Anti-inflammatory Drug take 1 tablet by mouth every six hours as needed for pain ibuprofen (MOTRIN) 600 mg tablet Take 1 tablet (600 mg total) by mouth every 6 (six) hours as needed for pain. 0 Active methocarbamol 750 mg oral tablet (9 sources) Muscle Relaxant Start: 09-27-2023 End: 12-05-2023 [...] 12/05/2023 Active predniSONE 20 mg oral tablet (5 sources) Start: 09-27-2023 End: 12-05-2023 predniSONE (DELTASONE) [...] completed) traZODone hydrochloride 50 mg oral tablet (8 sources) Serotonin Reuptake Inhibitor traZODone (DESYREL) 50 mg tablet Take 1 tablet (50 mg total) by mouth nightly. 1 TO 2 TABLETS 0 Active divalproex sodium 500 mg delayed release oral tablet (8 sources) Mood Stabilizer, Anti-epileptic Agent take 1 tablet by mouth three times daily divalproex (DEPAKOTE) 500 mg EC tablet Take 1 tablet (500 mg total) by mouth 3 (three) times a day. 0 Active Problems Active Problems Problem Classification Problem Date Documented Date Episodic/Chronic Chronic obstructive pulmonary disease and bronchiectasis (9 sources) Chronic obstructive lung disease; Translations: [Chronic [...] Onset: 3 Chronic Other lower respiratory disease (1 source) Solitary pulmonary nodule; Translations: [Solitary pulmonary nodule] Onset: 4 Episodic Other screening for suspected conditions (not mental disorders or infectious disease) (3 sources) Encounter for screening for malignant neoplasm of prostate; Translations: [Patient encounter status] Onset: 4 12-05-2023 Episodic Spondylosis; intervertebral disc disorders; other back problems (4 sources) Spondylosis without myelopathy or radiculopathy, lumbosacral region; Translations: [Other intervertebral disc displacement, lumbar region] Onset: 4 12-14-2023 Chronic Spondylosis; intervertebral disc disorders; other back problems (10 sources) Radiculopathy, lumbar region; Translations: [Muscle spasm of back] Onset: 4 09-27-2023 Episodic Unclassified (2 sources) Post-op; Translations: [Post-op] Onset: 3 Unclassified (1 source) Annual Exam Onset: 4 Unclassified (1 source) New Patient Onset: 4 Past or Other Problems Problem Classification Problem Date Documented Da te Episodic/Chronic Mood disorders (8 sources) Mood disorders Onset: 09-27-2023 Resolved: 12-05-2023 09-27-2023 Other lower respiratory disease (2 sources) Nodule of lung; Translations: [Solitary pulmonary nodule] 12-05-2023 Episodic Unclassified (8 sources) Onset: 09-27-2023 Resolved: 12-05-2023 09-27-2023 Results Test Name Value Interpretation Reference Range Facility CBC AND AUTO DIFFon 12-05-19 24 ABSOLUTE BASOPHIL 0.0 X10E9/L Normal 0.0-0.2 [facility] Comment on above: Performed By: #### C BCA, CMP, 61383-0, 2857-1, 3016-3 #### [facility] ([id number]) [address], [address] [place] [address] ABSOLUTE NEUTROPHIL 6.2 X10E9/L Normal 1.5-6.6 [facility] Comment on above: Performed By: #### C BCA, CMP, 28870-2, 2857-1, 3016-3 #### [facility] ([id number]) [address], [facility] [address] [place] [address] Basophils/100 WBC (Bld) 0.3 % Normal [facility] Comment on above: Performed By: #### C BCA, CMP, 45153-2, 2857-1, 3016-3 #### [facility] ([id number]) [address], [facility] [address] [place] [address] Eosinophils (Bld) [#/Vol] 0.2 10*3/uL Normal 0.0-0.4 [facility] Comment on above: Performed By: #### C BCA, CMP, 25221-8, 2857-1, 6-3 #### [facility] ([id number]) [address] [address] Eosinophils/100 WBC (Bld) 2.1 % Normal [facility] Comment on above: Performed By: #### C BCA, CMP, 98920-8, 2857-1, 3016-3 #### [facility] ([id number]) [address] [address] Erythrocyte distribution width (RBC) [Ratio] 14.6 % Normal 11.5-15.0 [facility] Comment on above: Performed By: #### C BCA, CMP, 46048-0, 2857-1, 3016-3 #### [facility] ([id number]) [address] [address] [place] [address] Hematocrit (Bld) [Volume fraction] 44.2 % Normal 39-49 [facility] Comment on above: Performed By: #### C BCA, CMP, 12872-9, 2857-1, 3016-3 #### [facility] ([id number]) [address], [address] [place] [address] Hemoglobin (Bld) [Mass/Vol] 15.0 g/dL Normal 13.0-17.0 [facility] Comment on above: Performed By: #### C BCA, CMP, 41344-2, 2857-1, 3016-3 #### [facility] ([id number]) [address], [address] [place] [address] Lymphocytes (Bld) [#/Vol] 2.4 10*3/uL Normal 1.0-3.5 [facility] Comment on above: Performed By: #### C BCA, CMP, 06128-8, 2857-1, 3016-3 #### [facility] ([id number]) [address] [address] [place] [address] Lymphocytes/100 WBC (Bld) 24.7 % Normal [facility] Comment on above: Performed By: #### C BCA, CMP, 44163-0, 2857-1, 3016-3 #### [facility] ([id number]) [address], [address] [place] [address] MCH (RBC) [Entitic mass] 29.5 pg Normal 27-34 [facility] Comment on above: Performed By: #### C BCA, CMP, 99591-9, 2857-1, 3016-3 #### [facility] ([id number]) [address], [address] [place] [address] MCHC (RBC) [Mass/Vol] 33.9 g/dL Normal 32-36 [facility] Comment on above: Performed By: #### C BCA, CMP, 17496-4, 2857-1, 3016-3 #### [facility] ([id number]) [address] [address] [place] [address] MCV (RBC) [Entitic vol] 87 fL Normal 80-100 [facility] Comment on above: Performed By: #### C BCA, CMP, 85514-0, 2857-1, 3016-3 #### [facility] ([id number]) [address], [address] [place] [address] Monocytes (Bld) [#/Vol] 0.8 10*3/uL Normal 0-0.9 [facility] Comment on above: Performed By: #### C BCA, CMP, 10549-0, 2857-1, 3016-3 #### [facility] ([id number]) [address], [address] [place] [address] Monocytes/100 WBC (Bld) 8.5 % Normal [facility] Comment on above: Performed By: #### C BCA, CMP, 94147-7, 2857-1, 3016-3 #### [facility] ([id number]) [address], [address] [place] [address] Neutrophils/100 WBC (Bld) 64.4 % Normal [facility] Comment on above: Performed By: #### C BCA, CMP, 45955-5, 2857-1, 3016-3 #### [facility] ([id number]) [address], [address] [place] [address] Platelet mean volume (Bld) [Entitic vol] 7.7 fL Normal 7-12 [facility] Comment on above: Performed By: #### C BCA, CMP, 62390-8, 2857-1, 3016-3 #### [facility] ([id number]) [address], [address] [place] [address] Platelets (Bld) [#/Vol] 268 10*3/uL Normal 150-450 [facility] Comment on above: Performed By: #### C BCA, CMP, 32265-7, 2857-1, 3016-3 #### [facility] ([id number]) [address], [address] [place] [address] RBC COUNT 5.09 X10E12/L Normal 4.10-5.70 [facility] Comment on above: Performed By: #### C BCA, CMP, 09432-9, 2857-1, 3016-3 #### [facility] ([id number]) [address], [address] [place] [address] WBC (Bld) [#/Vol] 9.7 10*3/uL Normal 4.0-11.0 [facility] Comment on above: Performed By: #### C BCA, CMP, 84834-9, 2857-1, 3016-3 #### [facility] ([id number]) [address], [address] [place] [address] COMPREHENSIVE METABOLIC PANE Eliezer 12-05-2023 Albumin [Mass/Vol] 4.2 g/dL Normal 3.2-5.3 [facility] Comment on above: Performed By: #### C BCA, CMP, 51731-6, 2857-1, 3016-3 #### [facility] ([id number]) [address], [address] [place] [address] ALP [Catalytic activity/Vol] 86 U/L Normal 39-130 [facility] Comment on above: Performed By: #### C BCA, CMP, 97905-6, 2857-1, 3016-3 #### [facility] ([id number]) [address], [address] [place] [address] ALT [Catalytic activity/Vol] 12 U/L Normal 0-40 [facility] Comment on above: Performed By: #### C BCA, CMP, 64165-7, 2857-1, 3016-3 #### [facility] ([id number]) [address], [address] [place] [address] Anion gap [Moles/Vol] 9 mmol/L Normal 5-15 [facility] Comment on above: Performed By: #### C BCA, CMP, 13319-3, 2857-1, 3016-3 #### [facility] ([id number]) [address], [address] [place] [address] AST [Catalytic activity/Vol] 13 U/L Normal 0-41 [facility] Comment on above: Performed By: #### C BCA, CMP, 59816-7, 2857-1, 3016-3 #### [facility] ([id number]) [address], [address] [place] [address] Bilirubin [Mass/Vol] 0.3 mg/dL Normal 0.3-1.2 [facility] Comment on above: Performed By: #### C BCA, CMP, 71284-3, 2857-1, 3016-3 #### [facility] ([id number]) [address], [address] [place] [address] Calcium [Mass/Vol] 9.6 mg/dL Normal 8.5-10.5 [facility] Comment on above: Performed By: #### C BCA, CMP, 65464-6, 2857-1, 3016-3 #### [facility] ([id number]) [address], [address] [place] [address] Chloride [Moles/Vol] 106 mmol/L Normal 98-109 [facility] Comment on above: Performed By: #### C BCA, CMP, 78431-2, 2857-1, 3016-3 #### [facility] ([id number]) [address], [address] [place] [address] CO2 [Moles/Vol] 26 mmol/L Normal 22-32 [facility] Comment on above: Performed By: #### C BCA, CMP, 17581-1, 2857-1, 3016-3 #### [facility] ([id number]) [address] [address] [place] [address] Creatinine [Mass/Vol] 0.74 mg/dL Normal 0.60-1.30 [facility] Comment on above: Result Comment: METH OD TRACEABLE TO IDMS STANDARD Performed By: #### C BCA, CMP, 93992-8, 2857-1, 3016-3 #### [facility] ([id number]) [address], [address] [place] [address] eGFR (CKD-EPI) NON-RACE DEPENDENT >90 Normal >59 [facility] Comment on above: Result Comment: Reported eGFR is based on the CKD-EPI 2020 equation that does not use a race coefficient. Performed By: #### C BCA, CMP, 71430-0, 2857-1, 3016-3 #### [facility] ([id number]) [address] [address] [place] [address] Glucose [Mass/Vol] 112 mg/dL High 65-99 [facility] Comment on above: Performed By: #### C BCA, CMP, 19795-1, 2857-1, 3016-3 #### [facility] ([id number]) [address] [address] [place] [address] Potassium [Moles/Vol] 3.9 mmol/L Normal 3.5-5.0 [facility] Comment on above: Performed By: #### C BCA, CMP, 74814-5, 2857-1, 3016-3 #### [facility] ([id number]) [address] [address] [place] [address] Protein [Mass/Vol] 7.0 g/dL Normal 6.0-8.0 [facility] Comment on above: Performed By: #### C BCA, CMP, 31005-9, 2857-1, 3016-3 #### [facility] ([id number]) [address] [address] [place] [address] Sodium [Moles/Vol] 141 mmol/L Normal 134-146 [facility] Comment on above: Performed By: #### C BCA, CMP, 98487-3, 2857-1, 3016-3 #### [facility] ([id number]) [address], [address] [place] [address] Urea nitrogen [Mass/Vol] 15 mg/dL Normal 5-23 [facility] Comment on above: Performed By: #### C BCA, CMP, 02860-3, 2857-1, 3016-3 #### [facility] ([id number]) [address], [address] [place] [address] HGB A1C (GLYCO-HGB)on 2023 Glucose [Mass/Vol] 128 mg/dL Normal [facility] Comment on above: Performed By: #### C BCA, CMP, 99303-4, 2857-1, 6-3 #### [facility] ([id number]) [address], [address] [place] [address] HbA1c (Bld) [Mass fraction] 6.1 % High 4.4-5.6 [facility] Comment on above: Result Comment: NOTE ADA Guidelines Result HgbA1c Normal : less than 5.7 % Prediabetes : 5.7 % to 6.4 % Diabetes : > 6.4 % Use with caution in patients with abnormal hemoglobin variants as the half-life of red blood cells and in vivo glycation rates are affected. Performed By: #### C BCA, CMP, 69068-0, 2857-1, 3016-3 #### [facility] ([id number]) [address], [address] [place] [address] Lipid 1996 panelon 4 Cholesterol [Mass/Vol] 236 mg/dL High 150-200 [facility] Comment on above: Performed By: #### C BCA, CMP, 37838-1, 2857-1, 3016-3 #### [facility] ([id number]) [address], [facility] [address] [place] [address] Cholesterol in HDL [Mass/Vol] 40 mg/dL Normal >39 [facility] Comment on above: Result Comment: HDL <40 mg/dL - High Risk HDL > or = 40mg/dL- Desirable HDL >60 mg/dL - Negative Risk Performed By: #### Álvaro GOMEZ, CMP, 48133-8, 2857-1, 3016-3 #### [facility] ([id number]) [address], [address] [place] [address] Cholesterol in LDL [Mass/Vol] 126 mg/dL Normal <130 [facility] Comment on above: Result Comment: LDL <100 mg/dL - Desirable LDL >160 mg/dL - High Risk Performed By: #### Álvaro BCA, CMP, 66205-4, 2857-1, 3016-3 #### [facility] ([id number]) [address], [facility] [address] [place] [address] Cholesterol in VLDL [Mass/Vol] 70 mg/dL High 0-30 [facility] Comment on above: Performed By: #### Álvaro BCA, CMP, 63441-6, 2857-1, 3016-3 #### [facility] ([id number]) [address], [address] [address] CHOLESTEROL:HDL 5.9 High 1.0-5.0 [facility] Comment on above: Performed By: #### Álvaro BCA, CMP, 30192-8, 2857-1, 3016-3 #### [facility] ([id number]) [address] [address] Triglyceride [Mass/Vol] 350 mg/dL High 27-150 [facility] Comment on above: Performed By: #### C VICTOR M GOMEZ, 86848-3, 2857-1, 3016-3 #### [facility] ([id number]) [address] [address] Prostate specific Ag [Mass/V ol]on 12-05-2023 PSA SCREEN 0.35 ng/mL Normal 0.00-4.00 [facility] Comment on above: Result Comment: The method used for this test is SEA DXI chemiluminescent immunoassay. Values obtained by different assay methods cannot be used interchangeably. Performed By: #### C VICTOR M GOMEZ, 84878-9, 2857-1, 3016-3 #### [facility] ([id number]) [address] [address] TSH Qnon 12-05-2023 TSH 2.12 uIU/mL Normal 0.49-4.67 [facility] Comment on above: Performed By: #### C VICTOR M GOMEZ, 35984-0, 2857-1, 3016-3 #### [facility] ([id number]) [address] [address] XR SPINE LUMBAR 2 OR 3 VWSon [...] Se Garcia on 11/16/2023 4:27 PM Normal [facility] Office Visiton 08-16-2023 Follow-up visit [id number] [address] D 1970 M Date Provider Department Center 08/16/2023 NICOLE HORNE MP ORTHO MPORTHO Family History Family history unknown: Yes Level of Service:41978 IN POSTOP FOLLOW UP VISIT RELATED TO ORIGINAL PX Reason for Visit and Comments: Post-op [483] Normal [facility] Anesthesiaon 08-01-[id number] D 1970 M Date Provider Department Center 08/01/2023 4033-[facility] OR CHRISTIE Family History Family history unknown: Yes Normal [facility] HISTOLOGY - TISSUE EXAMon LAB AP CASE REPORT Normal [facility] Comment on above: Order Comment: Pre-o p diagnosis:Necrosis (CMS/HCC) [I96] Result Comment: Surg ical Pathology Case: [id number] Authorizing Provider: Nicole Taveras MD Collected: 08/01/2023 0749 Ordering Location: [facility] Received: 08/01/2023 [facility] Main [place] Pathologist: Bailey Meng MD Specimen: Finger, 1. RIGHT INDEX FINGER Performed By: #### L [id number] ####[facility] ([facility])[address] [place] [address] LAB AP CLINICAL INFORMATION Normal [facility] Comment on above: Order Comment: Pre-o p diagnosis:Necrosis (CMS/HCC) [I96] Result Comment: Post -Op Diagnoses I96 - Necrosis (CMS/HCC) [ICD-10-CM] Performed By: #### L [id number] ####[facility] ([facility])[address] [place] [address] LAB AP GROSS DESCRIPTION A. Finger. Normal [facility] Comment on above: Order Comment: Pre-o [...] in 2 after decalcification. Shalini Barahona, Pathologists' Charging Operator Performed By: #### L [id number] ####[facility] ([facility])[address] [facility] [place] [address] LAB AP MICROSCOPIC DESCRIPTION Microscopic examination performed. [facility] Comment on above: Order Comment: Pre-o p diagnosis:Necrosis (CMS/HCC) [I96] Performed By: #### L [id number] ####[facility] ([facility])[address] [facility] [place] [address] LAB AP REPORT FINAL DIAGNOSIS NARRATIVE [facility] Comment on above: Order Comment: Pre-o p diagnosis:Necrosis (CMS/HCC) [I96] Result Comment: Shiv chahal, right index finger, partial amputation: - Gangrenous necrosis of skin and soft tissue with granulation tissue formation. - No evidence of osteomyelitis. Performed By: #### L [id number] ####[facility] ([facility])[address] [facility] [place] [address] HPon 08-01-2023 HP H&P reviewed. The patient was examined and there are no changes to the H&P. [facility] OPNOTEon 08-01-2023 OPNOTE INDEX FINGER AMPUTATION (R) Operative Note Date: 08/01/2023 Location: [facility] OR Name: Aleksandar Gardner, : 1970, [...] Today Description: 1. RIGHT INDEX FINGER Staff: Rfid Systems Engineer: Gerardo Nguyễn RN Scrub Person: Jazz Jimenez, KELSEY Indications: Aleksandar Gardner is an 53 y.o. [...] hemodynamically stable. Condition: stable Nicole Taveras Normal [facility] POCT GLUCOSE METER UNSOLICIT ED RESULTSon 08-01-2023 Glucose [Mass/Vol] 109 mg/dL High 70-105 [facility] Comment on above: Order Comment: Waive d Testing in the ED is performed under the ED CLIA certificate #[id number]. Result Comment: acle ment Performed By: #### L [id number] #### [facility] ([facility]) [address] [place] [address] HPon 07-27-2023 HP -- Attestation signed by [...] on his right hand. He presented to [facility]'s ED in [place] three days after this incident, in which [...] scheduled for it. Signed: Wade Cornell MS3 [facility] Labon 07-27-[id number] D 1970 M Date Provider Department Center 07/27/2023 2244-[facility] MP LAB RESOURCE MP DRAW Medical Pavi Family History Family history unknown: Yes Normal [facility] MRSA/MSSA DNA NASALon 2022 MRSA DNA Negative Normal Negative [facility] Comment on above: Order Comment: Testi [...] preclude nasal colonization. Performed By: #### L [id number] ####[facility] ([facility])[address] [place] [address] MSSA DNA Negative Normal Negative [facility] Comment on above: Order Comment: Testi [...] preclude nasal colonization. Performed By: #### L [id number] ####[facility] ([facility])[address] [place] [address] Office Visiton 07-27-2023 Follow-up visit [id number] [address] 1970 M Date Provider Department Center 07/27/2023 YAIR HORNE [facility] MPORTHO Family History Family history unknown: Yes Level of Service:08499 IN POSTOP FOLLOW UP VISIT RELATED TO ORIGINAL PX Reason for Visit and Comments: Post-op [483] Normal [facility] HPon 07-17-2023 HP H&P reviewed. The patient was examined and there are no changes to the H&P. Normal [facility] OPNOTEon 07-17-2023 OPNOTE I&D Index Finger wit h Integra wound matrix application (R) Operative Note Date: 07/17/2023 Location: [facility] OR Name: Aleksandar Gardner, : 1970, Diagnosis Pre-op Diagnosis * Necrosis (CMS/HCC) [I96] Post-op Diagnosis * Necrosis (CMS/HCC) [I96] Procedures * I&D Index Finger with Integra wound matrix application Surgeons * Nicole Nitin - Primary Procedure Summary Anesthesia: Regional ASA: III Estimated Blood Loss: None Implants Type Name Action Serial No. Allograft Tissue DRESSING,BILAYER,2X2 , 5CM - [id number] Implanted Staff: Rfid Systems Engineer: Sofy Osullivan RN Relief Rfid Systems Engineer: Madison Carcamo Relief Scrub: Lilly Corea Scrub Person: Jazz Jimenez, KELSEY Indications: Aleksandar Gardner is an 53 y.o. [...] hemodynamically stable. Condition: stable Nicole Taveras Normal [facility] POCT GLUCOSE METER UNSOLICIT ED RESULTSon 07-17-2023 Glucose [Mass/Vol] 91 mg/dL Normal 70-105 [facility] Comment on above: Order Comment: Michaelketan dory Testing in the ED is performed under the ED CLIA certificate #[id number]. Result Comment: estephania dy2 Performed By: #### L [id number] ####[facility] ([facility])[address] [place] [address] HPon 07-12-2023 HP -- Attestation signed by [...] and PROM limited due to swelling Strength: direct sales professional 5/5, thumb 5/5, interossei 5/5 Sensation: intact [...] elevation Toño Holder MD Orthopaedic Surgery PGY-1 [facility] 07/12/23 11:27 AM By using the attestations [...] be an additional personal documentation from me. [facility] Office Visiton 07-12-2023 Follow-up visit [id number] [address] 1970 M Date Provider Department Center 07/12/2023 [place] TAVERAS ORTHO MPORTHO Family History Family history unknown: Yes Level of Service:58059 IN OFFICE/OUTPATIENT NEW LOW MDM 30-44 MINUTES Reason for Visit and Comments: Pain [136] [facility] 36on 07-11-2023 36 Spoke with patient a nd he has an appointment with fausto tomorrow [facility] 36 07-10-2023 36 Patient called in a bit frustrated that he had a surgery schedule with [facility] in [place] on and was told that his Sx was cancelled with the reason being that [facility] sent a referral to [facility] ortho for a hand specialist, Referral was received 07/10/23. Patient is worried that his finger is now black, his surgery canceled and he has no transportation here to [place] as he lives in [place], patient wanted to be seen as soon as possible but had to schedule a couple days out to get transportation, patient was advised to go to the nearest Emergency room in the mean time, if there is a better solution to this situation please contact patient. Thank you [facility] Vital Signs Date Time Vital Sign Value Performing Clinician Facility 12-14-2023 13:10-0400 Body height 165.1 cm Luca NOONAN [facility] Comment on above: stated 12-14-2023 13:10-0400 Respiratory rate 16 /min Luca NOONAN Work Phone: [facility] [employer] [facility] 12-05-2023 08:10-0400 Body height 165.1 cm Ashley HUBER Work Phone: [facility] 12-05-2023 08:10-0400 Body mass index (BMI) [Ratio] 33.25 kg/m2 Ashley Mckenna APRN-ROTOGRAVURE PRESS OPERATOR Work Phone: [facility] 12-05-2023 08:10-0400 Body temperature 98.01 [degF] Ashley Mckenna APRN-ROTOGRAVURE PRESS OPERATOR Work Phone: [facility] 12-05-2023 08:10-0400 Body weight 90.63 kg Ashley Mckenna HEADLIGHT ASSEMBLER-ROTOGRAVURE PRESS OPERATOR Work Phone: [facility] 12-05-2023 08:10-0400 Diastolic blood pressure 80 mm[Hg] Ashley Mckenna APRN-ROTOGRAVURE PRESS OPERATOR Work Phone: [facility] 12-05-2023 08:10-0400 Heart rate 77 /min Ashley Mckenna APRN-ROTOGRAVURE PRESS OPERATOR Work Phone: [facility] 12-05-2023 08:10-0400 Respiratory rate 18 /min Ashley Mckenna APRN-ROTOGRAVURE PRESS OPERATOR Work Phone: [facility] 12-05-2023 08:10-0400 SaO2% (BldA) [Mass fraction] 96 % Ashley Mckenna APRN-ROTOGRAVURE PRESS OPERATOR Work Phone: [facility] 12-05-2023 08:10-0400 Systolic blood pressure 130 mm[Hg] Ashley Mckenna APRN-ROTOGRAVURE PRESS OPERATOR Work Phone: [facility] 09-27-2023 13:58-0500 Body height 165.1 cm Ashley Mckenna HEADLIGHT ASSEMBLER-ROTOGRAVURE PRESS OPERATOR Work Phone: [facility] 09-27-2023 13:58-0500 Body mass index (BMI) [Ratio] 32.6 kg/m2 Ashley Mckenna HEADLIGHT ASSEMBLER-ROTOGRAVURE PRESS OPERATOR Work Phone: [facility] 09-27-2023 13:58-0500 Body temperature 98.29 [degF] Ashley Mckenna APRN-TERRENCE Work Phone: [employer] 09-27-2023 13:58-0500 Body weight 88.86 kg Ashley Mckenna APRN-ROTOGRAVURE PRESS OPERATOR Work Phone: [employer] 09-27-2023 13:58-0500 Diastolic blood pressure 84 mm[Hg] Ashley Mckenna APRN-TERRENCE [facility] 09-27-2023 13:58-0500 Heart rate 74 /min Ashley Mckenna APRN-ROTOGRAVURE PRESS OPERATOR [facility] Phone[facility] 09-27-2023 13:58-0500 SaO2% (BldA) [Mass fraction] 95 % Ashley Mckenna APRN-ROTOGRAVURE PRESS OPERATOR Work Phone: [employer] 09-27-2023 13:58-0500 Systolic blood pressure 140 mm[Hg] Ashley Mckenna APRNHanteleTERRENCE Work Phone: [facility] Encounters Encounter Date Encounter Type Care Provider Facility Start: 12-14-2023 End: 12-14-2023 ambulatory LUCA MILLAN [facility] Comment on above: Lung bullae (CMS-HCC ) (Primary Dx); Lung nodule seen on imaging study Start: 12-14-2023 End: 12-14-2023 Office outpatient new 45 minutes Luca Millan PA Work Phone: [facility] Comment on above: 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 Internal Medicine - Family Medicine Start: 12-05-2023 End: 12-06-2023 ambulatory [facility] Vicky MCKENNA [facility] Start: 12-05-2023 Encounter for genera l adult medical examination without abnormal findings [facility] Start: 12-05-2023 End: 12-05-2023 ambulatory [facility] Start: 12-05-2023 Encounter for genera l adult medical examination without abnormal findings [facility] Start: 12-05-2023 End: 12-05-2023 Patient encounter procedure Ashley Mckenna HEADLIGHT ASSEMBLER-ROTOGRAVURE PRESS OPERATOR Work Phone: [facility] Start: 12-05-2023 End: 12-05-2023 Periodic preventive med est patient 40-64yrs Ashley Mckenna HEADLIGHT ASSEMBLER-ROTOGRAVURE PRESS OPERATOR [facility] Comment on above: Annual physical exam (Primary Dx); Lung nodule seen on imaging study; Blood tests for routine general physical examination; Encounter for screening for malignant neoplasm of prostate; Lumbar back pain with radiculopathy affecting left lower extremity; Muscle spasm of back Start: 12-05-2023 End: 12-05-2023 Physical examination Ashley Mckenna HEADLIGHT ASSEMBLER-ROTOGRAVURE PRESS OPERATOR Work Phone: [facility] Start: 11-24-2023 Telephone encounter Yesi Avalos HEADLIGHT ASSEMBLER-ROTOGRAVURE PRESS OPERATOR Work Phone: [facility] General Surgery Start: 11-15-2023 End: 11-16-2023 ambulatory [facility] Start: 10-19-2023 Orders Only Ashley Vicky Sherrill white HEADLIGHT ASSEMBLER-ROTOGRAVURE PRESS OPERATOR Work Phone: [facility] Start: 09-28-2023 Patient encounter procedure Monique Fong [facility] Start: 09-27-2023 End: 09-27-2023 ambulatory [facility] Start: 09-27-2023 End: 09-27-2023 Office outpatient new 30 minutes Ashley Mckenna HEADLIGHT ASSEMBLER-ROTOGRAVURE PRESS OPERATOR Work Phone: [facility] Comment on above: Lumbar back pain wit h radiculopathy affecting left lower extremity (Primary Dx); Muscle spasm of back Start: 08-16-2023 End: 08-16-2023 ambulatory [facility] Start: 08-01-2023 End: 08-01-2023 ambulatory [facility] Start: 07-27-2023 ambulatory [facility] Start: 07-27-2023 End: 07-27-2023 ambulatory [facility] Start: 07-17-2023 End: 07-17-2023 ambulatory [facility] Start: 07-12-2023 End: 07-12-2023 ambulatory WILLI BERMUDEZ [facility] Procedures Date Procedure Procedure Detail Performing Clinician Start: 12-05-2023 Adult depression scr eening assessment Ashley Mckenna HEADLIGHT ASSEMBLER-ROTOGRAVURE PRESS OPERATOR Work Phone: Start: 09-27-2023 Adult depression scr eening assessment Ashley Mckenna HEADLIGHT ASSEMBLER-ROTOGRAVURE PRESS OPERATOR Work Phone: Start: 08-03-2023 Colonoscopy Ashley davis HEADLIGHT ASSEMBLER-ROTOGRAVURE PRESS OPERATOR Work Phone: Plan of Treatment Date Care Activity Detail Author Start: 08-03-2033 Screening for malign ant neoplasm of colon Colonoscopy [facility] Start: 07-03-2033 DTaP,Tdap and Td Vaccines (2 - Td or Tdap) DTaP,Tdap and Td Vaccines (2 - Td or Tdap) [facility] Start: 12-13-2024 Tobacco Screening Tobacco Screening [facility] Start: 12-04-2024 Adult BMI Follow Up Plan Adult BMI Follow Up Plan [facility] Start: 12-04-2024 Adult BMI Screening Adult BMI Screen ing [facility] Start: 12-04-2024 Depression Screening Depression Scre ening [facility] Start: 12-04-2024 Tobacco Screening Tobacco Screening [facility] Start: 09-27-2024 Adult BMI Follow Up Plan Adult BMI Follow Up Plan [facility] Start: 09-27-2024 Adult BMI Screening Adult BMI Screen ing [facility] Start: 09-27-2024 Depression Screening Depression Scre ening [facility] Start: 09-27-2024 Tobacco Screening Tobacco Screening [facility] Start: 02-13-2024 End: 12-13-2024 CT Chest WO contrast CT chest without contrast Imaging Routine Lung bullae (CMS-HCC) Lung nodule seen on imaging study Expected: 02/13/2024 (Approximate), Expires: 12/13/2024 [facility]: Comment on above: Expected: 02/13/2024 (Approximate), Expires: 12/13/2024 Start: 01-25-2024 End: 01-25-2024 Patient encounter procedure 01/25/2024 10:15 AM EDT Office Visit [facility] [address] [place] [id number] Luca Millan PA [address] [place] [address] [facility] Start: 12-15-2023 End: 12-15-2023 Patient encounter procedure 12/15/2023 10:00 AM EDT Appointment [facility] [address] [place] [address] [facility] Start: 12-14-2023 End: 12-14-2023 Patient encounter procedure 12/14/2023 1:00 PM EDT Office Visit [facility] [address] [place] [address] Luca Millan PA [address] [place] [address] [facility] Start: 12-07-2023 End: 12-07-2023 Patient encounter procedure 12/07/2023 12:00 PM EDT Office Visit [facility] [address] [place] [id number] Luca Millan, PA [address], [address] [place], [place] [id number] [facility] Start: 12-05-2023 End: 12-04-2024 [...] Medicine - Family Medicine [address] [place] [address] Ashley Mckenna, HEADLIGHT ASSEMBLER-ROTOGRAVURE PRESS OPERATOR [address] [place] [address] [facility] Start: 11-06-2023 End: 11-06-2023 Patient encounter procedure 11/06/2023 10:30 AM EST Office Visit [facility] [address] [place] [address] Ashley Mckenna, HEADLIGHT ASSEMBLER-ROTOGRAVURE PRESS OPERATOR [address] [place] [address] [facility] Start: 09-28-2023 End: 09-28-2023 Patient encounter procedure 09/28/2023 1:00 PM EST Office Visit [facility] [address] [place] [id number] Berenice Pantoja, DO [address] [facility] Pul[facility] Start: 09-27-2023 End: 09-27-2024 XR Lumbar spine 2 or 3 Views X-ray spine lumbar 2 or 3 views Imaging Routine Lumbar back pain with radiculopathy affecting left lower extremity Expected: 09/27/2023, Expires: 09/27/2024 [facility] Work Phone: Comment on above: Expected: 09/27/2023 , Expires: 09/27/2024 Start: 2020 Administration of varicella zoster vaccine Zoster (Shingles) Vaccine (1 of 2) [facility] Start: 1988 Adult BMI Follow Up Plan Adult BMI Follow Up Plan [facility] Start: 1970 Tobacco Counseling [facility]in g [facility] End: 12-04-2024 CBC W Auto Differential panel - Blood CBC auto differential Lab Routine Blood tests for routine general physical examination 1 Occurrences starting 12/05/2023 until 12/04/2024 [facility] Comment on above: 1 Occurrences starti ng 12/05/2023 until 12/04/2024 End: 12-04-2024 Comprehensive metabolic 2000 panel - Serum or Plasma Comprehensive metabolic panel Lab Routine Blood tests for routine general physical examination 1 Occurrences starting 12/05/2023 until 12/04/2024 [facility] Comment on above: 1 Occurrences starti ng 12/05/2023 until 12/04/2024 End: 12-04-2024 Hemoglobin A1c/Hemoglobin.total in Blood Hemoglobin A1c Lab Routine Blood tests for routine general physical examination 1 Occurrences starting 12/05/2023 until 12/04/2024 [facility] Comment on above: 1 Occurrences starti ng 12/05/2023 until 12/04/2024 End: 12-04-2024 Lipid 1996 panel - Serum or Plasma Lipid profile Lab Routine Blood tests for routine general physical examination 1 Occurrences starting 12/05/2023 until 12/04/2024 [facility] Comment on above: 1 Occurrences starti ng 12/05/2023 until 12/04/2024 End: 12-13-2024 MR Lumbar spine WO contrast MR lumbar spine without contrast Imaging Routine Lumbar radiculopathy, chronic 1 Occurrences starting 12/14/2023 until 12/13/2024 [employer] Work Phone: Comment on above: 1 Occurrences starti ng 12/14/2023 until 12/13/2024 End: 12-04-2024 Prostatic specific antigen screen Prostatic specific antigen screen Lab Routine Encounter for screening for malignant neoplasm of prostate 1 Occurrences starting 12/05/2023 until 12/04/2024 [employer] Comment on above: 1 Occurrences starti ng 12/05/2023 until 12/04/2024 End: 12-04-2024 Thyrotropin [Units/volume] in Serum or Plasma TSH Lab Routine Blood tests for routine general physical examination 1 Occurrences starting 12/05/2023 until 12/04/2024 [employer] Comment on above: 1 Occurrences starti ng 12/05/2023 until 12/04/2024 Immunizations Immunization Date Immunization Notes Care Provider Jaycob richardson 07-03-2023 tetanus toxoid, redu juliet diphtheria toxoid, and acellular pertussis vaccine, adsorbed Ashley Mckenna HEADLIGHT ASSEMBLER-ROTOGRAVURE PRESS OPERATOR Work Phone: [employer] Payers Date Payer Category Payer Medicaid [id number] 2023 Medicaid [id number] 2023 Unknown [id number] 2023 Private Health Insurance [facility] [employer] [id number] 2023-Present [phone] [address] [place] [address] [id number] 2023 Unknown [id number] 1970 Unknown [id number] 1970 Unknown [id number] 1970 Unknown [id number] 1970 Unknown [id number] 1970 Unknown [id number] Social History Date Type Detail Facility Start: 09-27-2023 [facility] History of tobacco use Cigarette Smoker P [facility] Start: 09-27-2023 End: 12-14-2023 Cigarettes smoked current (pack per day) - Reported 1 [facility] Start: 09-27-2023 End: 12-14-2023 Tobacco use and exposure Smokeless tobacco non-user [facility] Start: 09-27-2023 End: 12-14-2023 Alcohol intake Ex-drinker (finding) [facility] Start: 09-27-2023 End: 12-14-2023 Tobacco use panel [facility] Adolescent depressio n screening assessment 6 [facility] Start: 09-27-2023 Tobacco Comment Pt is ready to quit smoking [facility] Start: 1970 Sex Assigned At Not on file P [facility] Start: 12-14-2023 Tobacco smoking stat [facility] Ex-smoker [facility] History of tobacco use Current smoker [facility] Clinical Notes 07-12-2023 to 12-14-2023 SHAISTA Hurley - 12/14/2023 1:00 PM EDTTelephone Encounter - Bailey Gamble - 12/11/2023 2:55 PM EDTTelephone Encounter - Bailey Gamble - 12/11/2023 2:55 PM EDT Note Date & Type Note Facility 12-14-2023 History of Presen t illness Narrative [facility] [address] [place] [address] Patient: Aleksandar Gardner Sex: male : 1970 Age: 53 y.o. PCP: Ashley Mckenna, HEADLIGHT ASSEMBLER-ROTOGRAVURE PRESS OPERATOR 12/14/2023 Aleksandar Gardner is here for a(n) [...] Chronic cough COPD (chronic obstructive pulmonary disease) ([facility]) GERD (gastroesophageal reflux disease) History of pleurisy Hx of lipoma Migraine Sleep apnea Stomach ulcer Past Surgical History: Procedure Laterality Date AMPUTATION OF REPLICATED FINGERS 08/14/2023 RT INDEX COLONOSCOPY DIAGNOSTIC / SCREENING N/A 08/03/2023 Performed by Se Calderón DO at [facility] F[facility] Right index, from cellulitis [...] with radiculopathy affecting left lower extremity - [facility] [place], [place] Disc displacement, lumbar - Ambulatory referral [...] care center for a second opinion regarding longterm use of narcotic medications. Prescribed medication that [...] Scribed for and in the presence of SHAISTA HURLEY by [facility]ana [facility] CNA. Provider Statement: I, SHAISTA HURLEY, personally performed the services described in the documentation, as scribed by Giovana South CNA in my presence, and it is both accurate and complete. [facility] CNA 12/14/23 1401 SHAISTA Hurley 12/14/23 1516 documented in this encounter [facility] 12-11-2023 Miscellaneous Notes ----- Message from MAYO Vazquez sent at 12/11/2023 2:22 PM EDT ----- Reviewed. Inform patient he is prediabetic, A1c is 6.1%, (6.5% is DM). His cholesterol panel is elevated as well. Is the [facility] ordering a cholesterol medication for him? Called the patient and relayed provider result note. [facility] Pravastatin 20 mg @ bedtime although he has not been taking it. He says he needs to start and is wondering what he should do about the prediabetes. Please advise. documented in this encounter [facility] 12-11-2023 Telephone encounter Note ----- Message from MAYO Vazquez sent at 12/11/2023 2:22 PM EDT ----- Reviewed. Inform patient he is prediabetic, A1c is 6.1%, (6.5% is DM). His cholesterol panel is elevated as well. [facility] the [facility] a [facility] for him? [facility] 12-11-2023 Telephone encounter Note Called the patient and relayed provider result note. Patient reports [facility] Pravastatin 20 mg @ bedtime although he has not been taking it. He says he needs to start and is wondering what he should do about the prediabetes. Please advise. [facility] 12-05-2023 History of Presen t illness Narrative Images from the original note were not included. [address] [place] [address] SUBJECTIVE: Patient ID: Aleksandar Gardner is a 53 y.o. male. Chief Complaint Patient presents with Annual Exam Presents for annual physical exam. He also goes to [facility] in [place] for psychiatry and PCP services. States his [...] 08/03/2023 Performed by Se Calderón DO at [facility] Right index, from cellulitis LIPOMA RESECTION PLEURAL SCARIFICATION Right 02/2013 Past Medical History: Diagnosis Date Anxiety Arthritis Cataract 08/21/2023 Cellulitis right index finger COPD (chronic obstructive pulmonary disease) ([facility]) History of pleurisy Hx of lipoma [...] with radiculopathy affecting left lower extremity - [facility] [place], [place]; Future - methocarbamoL (ROBAXIN-750) 750 mg [...] Vazquez 12/05/23 0903 documented in this encounter [facility] 11-24-2023 Miscellaneous Notes Aleksandar no called, no showed for his appointment to update his H&P for a colonoscopy. Left message on patients voicemail to call the office back to reschedule this appointment as I was unable to make contact. documented in this encounter [facility] 11-24-2023 Telephone encounter Note Aleksandar no called, no showed for his appointment to update his H&P for a colonoscopy. Left message on patients voicemail to call the office back to reschedule this appointment as I was unable to make contact. [facility] 09-28-2023 History of Presen t illness Narrative [facility] Patient visited the Food Clinic and received food documented in this encounter [facility] 09-27-2023 History of Presen t illness Narrative Images from the original note were not included. [address] [place] [address] SUBJECTIVE: Patient ID: Aleksandar Gardner is a [...] 08/03/2023 Performed by Se Calderón DO at [facility] FINGER SURGERY Right index, from cellulitis LIPOMA RESECTION PLEURAL SCARIFICATION Right 02/2013 Past Medical History: Diagnosis Date Anxiety Arthritis Cataract 08/21/2023 Cellulitis right index finger COPD (chronic obstructive pulmonary disease) ([facility]) History of pleurisy Hx of lipoma Migraine [...] oral PRN as directed - [facility] -Start methocarbamol [...] Vazquez 09/27/23 1626 documented in this encounter 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 He is okay to return to this work we just recommend that he covers his tip of his index finger for the next week. We discussed scar massage to prevent sensitivity Nav Olivia MD Orthopedic Surgery Resident Orthopedic Surgery Pager: [phone] 08/16/23 10:12 AM By using the attestations [...] be an additional personal documentation from me. [facility] 08-02-2023 Note Attempted to reach p atient regarding his recent procedure with Dr. Taveras (08/01) as well as to confirm his post-operative appointment on 08/16. Patient was unavailable and voicemail box was full, so I was unable to leave a voice message with my contact information for a call back. [facility] 08-01-2023 Note Patient: Aleksandar ramos Procedure Summary Date: 08/01/23 Room / Location: [facility] OR [address] [place] [address] OR Anesthesia Start: 732 Anesthesia Stop: 816 [...] per anesthesia protocol. No notable events documented. [facility] 08-01-2023 Note Patient: Aleksandar ramos Procedure Information Date/Time: 08/01/2330 Procedure: INDEX FINGER AMPUTATION (Right: Index Finger) - DO NOT MOVE TIME DUE TO TRANSPORTATION Location: [facility] OR [address] [place] [address] OR Surgeons: Nicole Taveras MD Relevant Problems [...] Plan discussed with attending. Additional Equipment Requests [facility] 07-27-2023 Note Attestation signed by Nicole Taveras MD [...] on his right hand. He presented to [facility]'s ED in [place] three days after this incident, in which [...] scheduled for it. Signed: Wade Cornell, MS3 [facility] 07-19-2023 Note Attempted to reach p atient regarding his procedure with Dr. Taveras (07/17) as well as to confirm his post-operative appointment on 07/27. Call could not be completed to the number listed, so I was unable to leave a voice message with my contact information for a call back. [facility] 07-17-2023 Note Patient: Aleksandar Prescott oss Procedure Summary Date: 07/17/23 Room / Location: [facility] OR [address] [place] [address] OR Anesthesia Start: 1255 Anesthesia Stop: 1342 Procedure: I&D Index Finger with Integra wound matrix application (Right: Index Finger) Diagnosis: Necrosis (CMS/HCC) (Necrosis (CMS/HCC) [I96]) Surgeons: Nicole Taveras MD Responsible Provider: Tri Bunch MD Anesthesia Type: MAC ASA Status: 3 Anesthesia Type: MAC Vitals Value Taken Time BP 137/65 07/17/23 1420 Temp 36.3 ???C (97.3 ???F) 07/17/23 [...] per anesthesia protocol. No notable events documented. [facility] 07-17-2023 Note Patient: Aleksandar ramos Procedure Summary Date: 07/17/23 Room / Location: [address] OR Anesthesia Start: 1255 Anesthesia Stop: Procedure: [...] observation Transport: uneventful Patient condition is: stable [facility] 07-17-2023 Note Patient: Aleksandar ramos Procedure Information Date/Time: 07/17/23 1215 Procedure: I&D Index Finger with A-Cell Application (Right: Index Finger) Location: [facility] OR [address] [place] [address] OR Surgeons: Nicole Taveras MD Relevant Problems [...] consented to blood products. Plan discussed with SIGNAL FITTER. Additional Equipment Requests [facility] 07-12-2023 Note Attestation signed by Nicole [...] and PROM limited due to swelling Strength: direct sales professional 5/5, thumb 5/5, interossei 5/5 Sensation: intact [...] elevation Toño Holder MD Orthopaedic Surgery PGY-1 [facility] 07/12/23 11:27 AM By using the attestations [...] be an additional personal documentation from me. [facility] Evaluation note Diagnosis Lumbar back pain with radiculopathy affecting left lower extremity- Primary Muscle spasm of back documented in this encounter [facility] SystemEvaluation [facility]* Diagnosis Annual physical exam- Primary [...] spasm of back documented in this encounter [facility] SystemEvaluation note* Diagnosis Lung bullae (CMS-HCC)- Primary Emphysematous bleb Lung nodule seen on imaging study [facility] Diagnosis Lumbosacral spondylosis without myelopathy- Primary Lumbar back pain with radiculopathy affecting left lower extremity Disc displacement, lumbar Displacement of lumbar intervertebral disc without myelopathy Lumbar radiculopathy, chronic documented in this encounter [facility] SystemInstructions* Attachments The following attachments cannot be sent through Care Everywhere. * Muscle Spasm ED (Romanian) * Radiculopathy (Romanian) [facility] SystemInstructionsNot on file documented in this encounterPro[facility] SystemInstructionsNot on file [facility]* Attachments The following attachments cannot be sent through Care Everywhere. * Yearly Physical for Adults (Romanian) [facility] SystemInstructionsNot on file documented in this encounterGalion Community HospitalInstructionsNot on file documented in this encounterGalion Community HospitalReason for referral (narrative)* Consultation (Routine) - Pending Review Specialty Diagnoses / Procedures Referred By Claudia perez Referred To Contact Pain Medicine Diagnoses Lumbar back pain with radiculopathy affecting left lower extremity Ashley Mckenna APRN-CNP [address] [place] [address] [facility] [address] [place] [address] Referral ID Status Reason Start Date Expiration Date Visits Requested Visits Authorized [id number] Pending Review Specialty Services Required 12/05/2023 12/04/2024 1 1 * Diagnostic Imaging (Routine) - Pending Review Specialty Diagnoses / Procedures Referred By Contac t Referred To Contact Radiology Diagnoses Lung nodule seen on imaging study Procedures CT low dose lung screening (Annual) Ashley Mckenna APRN-[facility] [address] [place] [address] Referral ID Status Reason Start Date Expiration Date V isits Requested Visits Authorized [id number] Pending Review 12/05/2023 12/04/2024 1 1 [facility] Summary Purpose Family History No [...] Procedures CT chest without contrast Ashley Mckenna, HEADLIGHT ASSEMBLER-[facility] [address] [place] [address] Referral ID Status Reason Start Date Expiration Date V isits Requested Visits Authorized [id number] Pending Review 12/14/2023 12/13/2024 1 1 Specialty Diagnoses / Procedures Referred By Contac t Referred To Contact Rehabilitation Diagnoses Lumbosacral spondylosis without myelopathy Disc displacement, lumbar Luca Millan PA [address] [place] [address] Referral ID Status Reason Start Date Expiration Date Visits Requested Visits Authorized [id number] Pending Review Specialty Services Required 12/14/2023 12/13/2024 1 1 Specialty Diagnoses / Procedures Referred By Contac t Referred To Contact Radiology Diagnoses Lumbar radiculopathy, chronic Procedures MR lumbar spine without contrast Luca Millan PA [address] [place] [address] Referral ID Status Reason Start Date Expiration Date V isits Requested Visits Authorized [id number] Pending Review 12/14/2023 12/13/2024 1 1 Additional Source Comments (unrecognized sect ion and content) No Status Records FoundNo Status Records FoundNo Status Records FoundNo Status Records Found INFORMATION SOURCE (unrecogn ized section and content) DATE CREATED AUTHOR 08/22/2023 [facility] DATE CREATED AUTHOR AUTHOR'S ORGANIZ ATION 12/05/2023 [facility] DATE CREATED AUTHOR AUTHOR'S ORGANIZ ATION 12/06/2023 [facility] DATE CREATED AUTHOR AUTHOR'S ORGANIZ ATION 12/15/2023 [facility] Reason for Visit (unrecogniz ed section and content) Reason Comments New Patient Reason Comments Annual Exam Reason Comments Back Pain Specialty Diagnoses / Procedures Referred By Claudia perez Referred To Contact Pain Medicine Diagnoses Lumbar back pain with radiculopathy affecting left lower extremity [facility] [address] [place] [address] [facility] [address] [place] [address] Referral ID Status Reason Start Date Expiration Date Visits Requested Visits Authorized [id number] Pending Review Specialty Services Required 12/05/2023 12/04/2024 1 1 Care Teams (unrecognized sec tion and content) Anesthesia Assistant Relationship Specialty Start Date End Date Ashley Mckenna APRNTERRENCE [address] [place] [address] PCP - General Family Medicine 09/27/23 Anesthesia Assistant Relationship Specialty Start Date End Date Ashley Mckenna APRNTERRENCE [address] [place] [address] PCP - General Family Medicine 09/27/23 Anesthesia Assistant Relationship Specialty Start Date End Date Ashley Mckenna [facility] [address] [place] [address] PCP - [facility] 09/27/23 Anesthesia Assistant Relationship Specialty Start Date End Date Ashley Mckenna [facility] [address] [place] [address] PCP [facility] 09/27/23 Anesthesia Assistant Relationship Specialty Start Date End Date Ashley Mckenna [facility] [address] [place] [address] [facility] 09/27/23 Anesthesia Assistant Relationship Specialty Start Date End Date Ashley Mckenna [facility] [address] [place] [address] [facility] 09/27/23 Anesthesia Assistant Relationship Specialty Start Date End Date Ashley Mckenan [facility] [address] [place] [address] [facility] 09/27/23 FOR RECORDS PERTAINING TO PATIENTS WHO [...] BE BASED ON THE PRIMARY CLINICAL RECORDS. [facility] provides no warranty or guarantee of the accuracy or completeness of information in this document.
--- NOTE | 2025-04-19 09:17 | CT_ITS ---
The [address] [address] Patient Name: BRENDEN GARDNER MRN: [id number] date: 1970 Sex: M Assigned Patient Location: ED.MAIN Current Patient Location: ED.MAIN Accession/Order Number: [id number] Exam Date: 04/19/2025 10:18 Report Date: 04/19/2025 10:37 At the request of: YVONNE SILVA MD Procedure: CT abdomen pelvis w con CT abdomen pelvis w con 04/19/2025 9:59 AM SIGNS AND SYMPTOMS: ^Diffuse abdominal pain \S.br\ TECHNIQUE: Multidetector ct axial images of the abdomen and pelvis were obtained with IV contrast. Multiplanar reformats were performed and reviewed to further define anatomy and possible pathology. CT was performed with one or more of the following dose reduction techniques: Automated exposure control, adjustment of the mA and/or kV according to patient size, or use of iterative reconstruction technique. COMPARISON: None. FINDINGS: Lower Chest: Emphysematous changes are noted in the lung parenchyma. There is dependent scarring or atelectasis in the right lung base. ABDOMEN: Liver: The liver is hypoattenuating suggesting hepatic steatosis. Bile Ducts: Normal caliber. Gallbladder: No calcified gallstones. Normal caliber wall. Pancreas: Within normal limits. Spleen: Within normal limits. Adrenals: Within normal limits. Kidneys: There is focal renal cortical scarring at the inferior pole on the left. Pelvis: Reproductive Organs: No pelvic masses. Ureters: Within normal limits. Bladder: Within normal limits. Bowel: There is a normal appendix in the right lower quadrant. Mild diffuse colonic wall thickening is noted suspicious for colitis which may be infectious or inflammatory. There is no bowel obstruction. Mesenteric Lymph Nodes: No enlarged mesenteric lymph nodes. Peritoneum: No ascites or free air, no fluid collection. Vessels: Atherosclerotic changes are noted in the abdominal aorta and its branches. Retroperitoneum: Within normal limits. Abdominal Wall: Within normal limits. Bones: Degenerative changes are noted in the thoracolumbar spine CT/CT abdomen pelvis w con IMPRESSION: Mild diffuse colonic wall thickening is noted suspicious for colitis which may be infectious or inflammatory. There is no bowel obstruction or obstructive uropathy. The liver is hypoattenuating suggesting hepatic steatosis. Impression dictated by: Shan Ford M.D. 04/19/2025 10:37 AM Dictation Location: [place] [address] Electronically authenticated by: [id number] Y Date: 04/19/2025 10:37
--- NOTE | 2025-04-19 09:17 | ECG_ITS ---
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 Measurements Intervals [place] Rate: 67 P: 49 [place]: 166 QRS: -19 QRSD: 84 T: -16 QT: 408 QTc: 423 Interpretive Statements 1100 Sinus rhythm 4068 Nonspecific Twave abnormality 9130 borderline ECG Compared to ECG 06/23/2024 20:44:44 Possible ischemia no longer present Left-axis deviation no longer present Electronically Signed On 04-19-2025 21:33:43 EDT by YOLY DUMONT M.D.
--- NOTE | 2025-04-19 09:18 | ED_ITS ---
HPI HPI - General Adult General Chief complaint: Abdominal Pain Stated complaint: ABDOMINAL PAIN Time Seen by Provider: 04/19/25 09:13 Source: patient Mode of arrival: ambulance Limitations: no limitations History of Present Illness HPI narrative: 55-year-old male presents to the emergency department for abdominal pain. It is all over the abdomen but he states mostly in the middle part and has had it for about a month and a half. He has not seen a physician about it. He saw a little bit of blood in his stool yesterday only. No vomiting or trauma or fever. No dysuria or hematuria. Related Data Home Medications ?Medication ?Instructions ?Recorded ?Confirmed divalproex 500 mg tablet,extended 500 mg PO DAILY 05/2006/23/24 release 24 hr (Depakote ER) prazosin 1 mg capsule 1 mg PO DAILY 06/16/2306/23 risperidone 1 mg tablet (Risperdal) 1 mg PO DAILY 05/2006/23/24 trazodone 50 mg tablet 50 mg PO DAILY PRN sleep 06/23/24 albuterol sulfate 90 mcg/actuation 2 puff inhalation Q 4H PRN 06/23/24 06/23/24 aerosol inhaler shortness of breath or wheez ing Previous Rx's ?Medication ?Instructions ?Recorded ciprofloxacin HCl 500 mg tablet 500 mg PO Q12H #20 tab s 04/19/25 (Cipro) metronidazole 500 mg tablet 500 mg PO TID #30 tabs 11/12 Allergies Allergy/AdvReac Type Severity Reaction Status Date / Time No Known Drug Allergies Allergy Verified 04/19/25 09:09 Review of Systems ROS Narrative A ten point review of systems is negative except as noted above. [facility] Medical History (Updated 04/19/25 @ 10:45 by Syd Mcneal MD) COPD (chronic obstructive pulmonary disease) ?J44.9 - Chronic obstructive pulmonary disease, unspecified (ICD-10) Social History Little interest or pleasure in doing things: not at all Feeling down, depressed, or hopeless: not at all Exam Narrative Exam Narrative: Nurses note and vital signs reviewed and patient is not hypoxic. General: The patient appears well and in no apparent distress. Patient is resting comfortably on cart. Skin: Warm, dry, no pallor noted. There is no rash noted. Head: Normocephalic, atraumatic Eye: Normal conjunctiva, no drainage Ears, Nose, Mouth, and Throat: oral mucosa is moist. Nares patent. Cardiovascular: Regular Rate and Rhythm Respiratory: Patient is in no distress, no accessory muscle use, lungs are clear to auscultation, no wheezing, rales or rhonchi Back: non-tender GI: Soft, nondistended. No masses. He has diffuse mild tenderness. Musculoskeletal: The patient has no evidence of calf tenderness, no pitting edema, symmetrical pulses noted bilaterally Neurological: A&O, normal speech Psychiatric: Cooperative Constitutional Vital Signs, click to edit/add: Last Vital Signs Temp 98.6 F 04/19/25 09:09 Pulse 73 04/19/25 09:09 Resp 20 04/19/25 09:09 BP 182/108 H 04/19/25 09:20 Pulse Ox 98 04/19/25 09:09 O2 Del Method Room Air 04/19/25 09:09 Course Vital Signs Vital signs: Vital Signs Temperature 98.6 F 04/19/25 09:09 Pulse Rate 73 04/19/25 09:09 Respiratory Rate 20 04/19/25 09:09 Blood Pressure 186/112 H 04/19/25 09:09 Pulse Oximetry 98 04/19/25 09:09 Oxygen Delivery Method Room Air 04/19/25 09:09 Temperature 98.6 F 04/19/25 09:09 Pulse Rate 73 04/19/25 09:09 Respiratory Rate 20 04/19/25 09:09 Blood Pressure 182/108 H 04/19/25 09:20 Pulse Oximetry 98 04/19/25 09:09 Oxygen Delivery Method Room Air 04/19/25 09:09 Medical Decision Making MDM Narrative Medical decision making narrative: Colitis is identified on his CAT scan. Blood work is appropriate and he is able to be discharged home on Cipro and Flagyl. Follow-up with PCP. Treatment diagnosis and follow-up were discussed with the patient. Differential Diagnosis Differential Diagnosis: Constipation, colitis, nonspecific abd pain, diverticulitis Lab Data Lab results reviewed: Yes I reviewed the patient's lab results Labs: Lab Results 04/19/25 Range/Units 09:16 WBC 7.8 (4.0-11.0) 10^3/uL RBC 5.11 (4.70-6.10) 10^6/uL Hgb 15.3 (14.0-18.0) g/dL Hct 45.0 (42.0-54.0) % MCV 88.1 (80.0-94.0) fL MCH 29.9 (25.9-34.0) pg MCHC 34.0 (29.9-35.2) g/dL RDW 13.0 (11.0-15.0) % Plt Count 167 (150-450) 10^3/uL MPV 10.1 (9.5-13.5) fL Neut % (Auto) 66.1 (43.0-75.0) % Lymph % (Auto) 25.2 (20.5-60.0) % [place] % (Auto) 6.7 (1.7-12.0) % Eos % (Auto) 1.3 (0.9-7.0) % Baso % (Auto) 0.4 (0.2-2.0) % Neut # (Auto) 5.2 (1.4-6.5) 10^3/uL Lymph # (Auto) 2.0 (1.2-3.8) 10^3/uL [place] # (Auto) 0.5 (0.3-0.8) 10^3/uL Eos # (Auto) 0.1 (0.0-0.7) 10^3/uL Baso # (Auto) 0.0 (0.0-0.1) 10^3/uL Abs Immat Gran (auto) 0.02 (0.00-0.03) 10^3/uL Imm/Tot Granulo (auto) 0.3 (0.0-0.5) % Sodium 141 (136-145) mmol/L Potassium 4.0 (3.5-5.1) mmol/L Chloride 105 (98-107) mmol/L Carbon Dioxide 24.3 (21.0-32.0) mmol/L Anion Gap 15.7 BUN 10.0 (7.0-18.0) mg/dL Creatinine 0.79 (0.70-1.30) mg/dL Est GFR ( Amer) >60 (>=60 mL/min/1.73m^2) Est GFR (Non-Af Amer) >60 (>=60 mL/min/1.73m^2) BUN/Creatinine Ratio 12.7 Glucose 114 H (74-106) mg/dL Lactate 1.1 (0.4-2.0) mmol/L Calcium 8.7 (8.5-10.1) mg/dL Total Bilirubin 0.7 (0.2-1.0) mg/dL Direct Bilirubin 0.1 (0.0-0.2) mg/dL AST 43 H (15-37) U/L ALT 69 H (16-63) U/L Alkaline Phosphatase 83 (46-116) U/L Total Protein 7.6 (6.4-8.2) g/dL Albumin 3.7 (3.4-5.0) g/dL Globulin 3.9 g/dL Albumin/Globulin Ratio 0.9 Amylase 38 (25-115) U/L Lipase 22.0 (16.0-77.0) U/L Imaging Data CT scan - abdomen: Radiologist's impression: ITS Impressions Abdomen/Pelvis CT 04/19/25 09:17 IMPRESSION: Mild diffuse colonic wall thickening is noted suspicious for colitis which may be infectious or inflammatory. There is no bowel obstruction or obstructive uropathy. The liver is hypoattenuating suggesting hepatic steatosis. Impression dictated by: Shan Ford M.D. 04/19/2025 10:37 AM Dictation Location: [place] [address] Electronically authenticated by: [id number] Y Date: 04/19/2025 10:37 Discharge Plan Discharge Chief Complaint: Abdominal Pain Clinical Impression: Colitis Patient Disposition: Home, Self-Care Time of Disposition Decision: 10:45 Condition: Good Mode of Transportation: Private Vehicle Prescriptions / Home Meds: New metronidazole 500 mg tablet 500 mg PO TID Qty: 30 0RF ciprofloxacin HCl [Cipro] 500 mg tablet 500 mg PO Q12H Qty: 20 0RF No Action prazosin 1 mg capsule 1 mg PO DAILY divalproex [Depakote ER] 500 mg tablet extended release 24 hr 500 mg PO DAILY trazodone 50 mg tablet 50 mg PO DAILY PRN (Reason: sleep) Patient Comments: 1-2 tablets as needed at bedtime for sleep Rx Instructions: 1-2 tablets as needed at bedtime for sleep risperidone [Risperdal] 1 mg tablet 1 mg PO DAILY albuterol sulfate 90 mcg/actuation HFA aerosol inhaler 2 puff INHALATION Q4H PRN (Reason: shortness of breath or wheezing) Print Language: Honduran Instructions: Colitis (ED) Referrals: Gerardo Up DO [Primary Care Provider] - 1 week
[2025-04-19 09:20] VITALS: BP 182/108
[2025-04-19 09:25] LABS: Hematocrit 45.0 % (42.0-54.0); Hemoglobin 15.3 g/dL (14.0-18.0); Immature Granulocytes Abs Auto 0.02 10^3/uL (0.00-0.03); Immature Granulocytes Pct Auto 0.3 % (0.0-0.5); Lymphocytes Absolute Auto 2.0 10^3/uL (1.2-3.8); Mean Corpuscular HGB Conc 34.0 g/dL (29.9-35.2); Mean Corpuscular Hemoglobin 29.9 pg (25.9-34.0); Mean Corpuscular Volume 88.1 fL (80.0-94.0); Platelet Count 167 10^3/uL (150-450); Red Blood Count 5.11 10^6/uL (4.70-6.10); White Blood Count 7.8 10^3/uL (4.0-11.0)
[2025-04-19 09:47] LABS: Alanine Aminotransferase 69 U/L (16-63); Albumin Globulin Ratio 0.9; Albumin Level 3.7 g/dL (3.4-5.0); Alkaline Phosphatase 83 U/L (46-116); Amylase 38 U/L (25-115); Anion Gap 15.7; Aspartate Amino Transferase 43 U/L (15-37); Blood Urea Nitrogen 10.0 mg/dL (7.0-18.0); Calcium 8.7 mg/dL (8.5-10.1); Carbon Dioxide 24.3 mmol/L (21.0-32.0); Chloride 105 mmol/L (98-107); Estimated GFR (African America >60 (>=60 mL/min/1.73m^2); Estimated GFR (Non-African Ame >60 (>=60 mL/min/1.73m^2); Globulin 3.9 g/dL; Glucose 114 mg/dL (74-106); Lipase 22.0 U/L (16.0-77.0); Sodium 141 mmol/L (136-145); Total Protein 7.6 g/dL (6.4-8.2)
[2025-04-19 09:49] LABS: Lactate/Lactic Acid 1.1 mmol/L (0.4-2.0)
[2025-04-19 09:50] LABS: Potassium 4.0 mmol/L (3.5-5.1)
== END 2025-04-19 10:54 | disposition home or self-care (01) ==
PROVIDERS: Emergency Provider Emergency Medicine; PCP Family Medicine
DX: K52.9 Noninfective gastroenteritis and colitis, unspecified (principal)
CPT/HCPCS: 36415; 74177; 80048; 80076; 81001; 82150; 83605; 83690; 85025; 93005; 96374; 99285; J2405; Q9967